=== PATIENT | female | born 1985 | race Caucasian/White ===

== ENCOUNTER 2021-05-25 12:30 | Outpatient (CLI) | payer OTHER, SELFPAY ==
[2021-05-30 21:25] LABS: HPV APTIMA, High Risk Negative (Negative)
== END 2021-05-25 23:59 | disposition home or self-care (01) ==
LOC: LABSPEC 12:32
PROVIDERS: Referring Provider Obstetrics & Gynecology; Visit Provider Obstetrics & Gynecology
DX: Z12.4 Encounter for screening for malignant neoplasm of cervix (principal)
CPT/HCPCS: 87624; 88175; G0145

== ENCOUNTER 2021-05-29 07:42 | Outpatient (CLI) | payer OTHER, SELFPAY ==
[2021-05-29 11:13] LABS: Vitamin D,25 Hydroxy 20.8 ng/mL
[2021-05-29 11:22] LABS: Cholesterol 164 mg/dL (200); Glucose 88 mg/dL (74-106); High Density Lipoprotein 50 mg/dL; Thyroid Stim Hormone (TSH) 6.06 uIU/mL (0.358-3.74); Triglycerides 181 mg/dL; Very Low Density Lipoprotein 36 mg/dL (5-40)
== END 2021-05-29 23:59 | disposition home or self-care (01) ==
LOC: LAB 07:45
PROVIDERS: Visit Provider Obstetrics & Gynecology
DX: Z13.220 Encounter for screening for lipoid disorders (principal); Z13.1 Encounter for screening for diabetes mellitus; Z13.29 Encounter for screening for other suspected endocrine disorder
CPT/HCPCS: 36415; 80061; 82306; 82947; 84443

== ENCOUNTER 2021-06-05 07:33 | Outpatient (CLI) | payer OTHER, SELFPAY ==
[2021-06-05 09:31] LABS: T4 Free Direct 1.02 ng/dL (0.76-1.46); Thyroid Stim Hormone (TSH) 7.24 uIU/mL (0.358-3.74)
== END 2021-06-05 23:59 | disposition home or self-care (01) ==
LOC: LAB 07:34
PROVIDERS: Referring Provider Obstetrics & Gynecology; Visit Provider Obstetrics & Gynecology
DX: E07.9 Disorder of thyroid, unspecified (principal); Z13.29 Encounter for screening for other suspected endocrine disorder
CPT/HCPCS: 36415; 84439; 84443

== ENCOUNTER → 2021-09-29 | Outpatient (CLI) | payer OTHER, SELFPAY ==
[2021-09-29 09:27] LABS: Absolute Lymphocyte Count 2.01 X10^3/uL (0.83-4.51); Absolute Neutrophil Count 3.3 X10^3/uL (2.0-7.7); Basophil# 0.04 X10^3/uL; Basophil% 0.6 % (0-1); Eosinophil# 0.45 X10^3/uL; Eosinophils% 7.2 % (0-5); Hematocrit 38.2 % (37-47); Hemoglobin 12.1 g/dL (12.0-15.0); Lymphocyte # 2.01 X10^3/ul (0.83-4.51); Lymphocyte % 32.4 % (19-41); Mean Corp Hgb Conc 31.7 g/dL (32-36); Mean Corpuscular Hgb 26.1 pg (27.0-32.0); Mean Corpuscular Volume 82.5 fL (81-99); Mean Platelet Vol. 9.7 fl (6.2-12.0); Monocyte# 0.41 X10^3/uL; Monocyte% 6.6 % (0-10); NRBC Flagged by Analyzer 0 % (0-5); Neutrophil # 3.29 X10^3/uL (2.7-7.7); Platelet Count 368 K/mm3 (150-450); RBC Distribution Width CV 15.9 % (11.6-14.6); RBC Distribution Width SD 47.9 fl (35.1-43.9); Red Blood Count 4.63 M/mm3 (4.2-5.4); White Blood Count 6.2 K/mm3 (4.4-11.0)
[2021-09-29 09:46] LABS: BUN 13 mg/dL (7-18); Creatinine, Serum 0.93 mg/dL (0.55-1.02); Glucose 100 mg/dL (74-106)
[2021-09-29 09:47] LABS: ALB/GLOB Ratio 1.1 RATIO (0.9-2.4); AST(SGOT) 16 U/L (15-37); Alanine Aminotransfer ALT/SGPT 24 U/L (13-56); Albumin, Serum 3.8 g/dL (3.2-5.0); Alkaline Phosphatase 58 U/L (45-117); Anion Gap 6 (5-15); BUN/Creat Ratio 13.9 RATIO (10-20); Calcium,Total 8.9 mg/dL (8.5-10.1); Chloride 105 mmol/L (98-107); EST Glomerular Filtration Rate 71 mL/min (>60); Est Glom Filt Rate - Afr Amer 86 mL/min (>60); Globulin 3.5 g/dL (2.2-4.2); Protein, Total 7.3 g/dL (6.4-8.2); Sodium Level 137 mmol/L (136-145)
== END | disposition home or self-care (01) ==
LOC: RAD 08:59
PROVIDERS: PCP Internal Medicine; Referring Provider Internal Medicine; Visit Provider Internal Medicine
DX: E03.9 Hypothyroidism, unspecified (principal)
CPT/HCPCS: 36415; 80053; 84443; 85025

== ENCOUNTER → 2021-12-08 | Outpatient (CLI) | payer OTHER, SELFPAY | END | disposition home or self-care (01) | LOC: LAB 07:09 | PROVIDERS: PCP Internal Medicine; Referring Provider Internal Medicine; Visit Provider Internal Medicine | DX: E03.9 Hypothyroidism, unspecified (principal) | CPT/HCPCS: 36415; 84443 ==

== ENCOUNTER → 2022-01-16 | Outpatient (CLI) | payer OTHER, SELFPAY ==
[2022-01-16 16:17] LABS: Mucous, Urine 0 SEEN /hpf (<or=2+)
[2022-01-16 16:24] LABS: Color, Urine Yellow (Yellow); Glucose, Dipstick Normal (Normal); Ketone-Dipstick Negative (Negative); Leukocyte Esterase-Dipstick 500 /ul (Negative); Nitrite-Dipstick Negative (Negative); Occult Blood-Urine 150 /ul (Negative); Protein-Dipstick 15 mg/dl (Negative); Specific Gravity, Urine 1.015 (1.002-1.030); Urine Bilirubin Dipstick Negative (Negative); Urine Clarity Sl. Cloudy (Clear); Urine Urobilinogen Normal (Normal)
[2022-01-16 16:35] LABS: Bacteria 1+ /hpf (None Seen); Red Blood Cells-Urine 0-5 SEEN /hpf (0-5); Squamous Epithelial Cells - UA 0-5 SEEN /hpf (5-10); White Blood Cells 25-50 SEEN /hpf (0-5)
== END | disposition home or self-care (01) ==
LOC: LABSPEC 16:16
PROVIDERS: PCP Internal Medicine; Visit Provider Nurse Practitioner Family
DX: R39.9 Unspecified symptoms and signs involving the genitourinary system (principal)
CPT/HCPCS: 81001; 87077; 87086; 87088; 87186

== ENCOUNTER → 2022-02-09 | Outpatient (CLI) | payer OTHER, SELFPAY ==
[2022-02-09 08:37] LABS: Thyroid Stim Hormone (TSH) 3.09 uIU/mL (0.358-3.74)
== END | disposition home or self-care (01) ==
LOC: LAB 07:40
PROVIDERS: PCP Internal Medicine; Referring Provider Internal Medicine; Visit Provider Internal Medicine
DX: E03.9 Hypothyroidism, unspecified (principal)
CPT/HCPCS: 36415; 84443

== ENCOUNTER → 2022-10-05 | Outpatient (CLI) | payer OTHER, SELFPAY ==
[2022-10-05 08:10] LABS: Absolute Lymphocyte Count 2.46 X10^3/uL (0.83-4.51); Basophil# 0.06 X10^3/uL; Basophil% 0.8 % (0-1); Eosinophil# 0.34 X10^3/uL; Eosinophils% 4.6 % (0-5); Hematocrit 42.6 % (37-47); Hemoglobin 13.9 g/dL (12.0-15.0); Lymphocyte # 2.46 X10^3/ul (0.83-4.51); Lymphocyte % 33.2 % (19-41); Mean Corp Hgb Conc 32.6 g/dL (32-36); Mean Corpuscular Hgb 28.9 pg (27.0-32.0); Mean Corpuscular Volume 88.6 fL (81-99); Mean Platelet Vol. 10.1 fl (6.2-12.0); Monocyte# 0.55 X10^3/uL; Monocyte% 7.4 % (0-10); NRBC Flagged by Analyzer 0 % (0-5); Neutrophil # 3.97 X10^3/uL (2.7-7.7); Neutrophil % 53.6 % (47-70); Platelet Count 343 K/mm3 (150-450); RBC Distribution Width CV 13.2 % (11.6-14.6); RBC Distribution Width SD 43.5 fl (35.1-43.9); Red Blood Count 4.81 M/mm3 (4.2-5.4); White Blood Count 7.4 K/mm3 (4.4-11.0)
[2022-10-05 08:49] LABS: AST(SGOT) 19 U/L (15-37); Alanine Aminotransfer ALT/SGPT 27 U/L (13-56); Albumin, Serum 3.8 g/dL (3.2-5.0); Alkaline Phosphatase 60 U/L (45-117); Anion Gap 9 (5-15); BUN 15 mg/dL (7-18); BUN/Creat Ratio 15.4 RATIO (10-20); Chloride 105 mmol/L (98-107); Cholesterol 157 mg/dL (200); Creatinine, Serum 0.98 mg/dL (0.55-1.02); EST Glomerular Filtration Rate 67 mL/min (>60); Est Glom Filt Rate - Afr Amer 81 mL/min (>60); Glucose 104 mg/dL (74-106); High Density Lipoprotein 49 mg/dL; Potassium 4.2 mmol/L (3.5-5.1); Protein, Total 7.8 g/dL (6.4-8.2); Sodium Level 139 mmol/L (136-145); Thyroid Stim Hormone (TSH) 4.77 uIU/mL (0.358-3.74); Triglycerides 162 mg/dL; Very Low Density Lipoprotein 32 mg/dL (5-40)
== END | disposition home or self-care (01) ==
LOC: LAB 07:21
PROVIDERS: PCP Internal Medicine; Referring Provider Internal Medicine; Visit Provider Internal Medicine
DX: Z00.00 Encounter for general adult medical examination without abnormal findings (principal); E03.9 Hypothyroidism, unspecified
CPT/HCPCS: 36415; 80053; 80061; 84443; 85025

== ENCOUNTER → 2023-04-26 | Outpatient (CLI) | payer OTHER, SELFPAY ==
--- OUTSIDE RECORDS SUMMARY | 2023-04-26 09:36 | XMS RPT_ITS | CCD ---
Author Name Unknown Address [facility] [address] [place] [address] Organization [facility] Care Team Providers Care Straightener Name Role Phone Unavailable Primary Care Provider Unavailabl e Allergies Allergy Classification Reported Allergen(s) Allergy Type Date of Onset Reaction(s) Facility (3 sources) POISON DEEDEE EXTRACT; Translations: [POISON DEEDEE EXTRACT] Drug Allergy 08-20-2021 Rash [facility] (3 sources) Seasonal allergy; Translations: [SEASONAL ALLERGIES] Allergy to substance 08-20-2021 Intolerance [facility] (3 sources) Cat Dander; Translations: [CAT DANDER] Drug Allergy 08-20-2021 Intolerance [facility] (3 sources) Dog Dander; Translations: [DOG DANDER] Drug Allergy 08-20-2021 Intolerance [facility] Medications Current Medications Medication Drug Class(es) Dates Sig (Normalized) Sig (Original) doxycycline monohydrate 100 mg oral tablet (1 source) Tetracycline-clas s Drug Start: 08-20-2021 End: 08-25-2021 take 1 tablet by mouth twice daily doxycycline monohydrate 100 mg tablet Take 1 tablet by mouth twice daily for 5 days. 10 tablet 0 08/20/2021 08/25/2021 Active Completed/Discontinued Medications Medication Drug Class(es) Dates Sig (Normalized) Sig (Original) levonorgestrel 0.890104 mg/hr intrauterine system (2 sources) Progestin, Progestin-containi ng Intrauterine Device Start: 04-18-2021 levonorgestrel 20.1 mcg/24 hrs (6 yrs) 52 mg IUD Levonorgestrel (Liletta) 20.1 mcg/24 hrs (6 yrs) 52 mg intrauterine device Active 1 DEVICE INTRA-UTER ONCE April 18, 2021 4:39pm as a single dose 0 04/18/2021 Active Problems Problem Classification Problem Date Documented Da te Episodic/Chronic Allergic reactions (1 source) Allergic contact dermatitis caused by plant material; Translations: [Allergic contact dermatitis due to plants, except food] Episodic Superficial injury; contusion (1 source) Insect bite of lower limb; Translations: [Insect bite (nonvenomous), right lower leg, initial encounter] Episodic Results Test Name Value Interpretation Reference Range Facil ity Vital Signs Date Time Vital Sign Value Performing Clinician Kelsey addison 08-18-2022 10:53-0400 Body temperature 97.9 [degF] Anita Landin APRN.LANDSCAPE MANAGER Work Phone: [facility] 08-18-2022 10:53-0400 Body weight 105.23 kg Anita Landin APRN.LANDSCAPE MANAGER Work Phone: [facility] 08-18-2022 10:53-0400 Diastolic blood pressure 68 mm[Hg] Anita Landin APRN.LANDSCAPE MANAGER Work Phone: [facility] 08-18-2022 10:53-0400 Heart rate 110 /min Anita Landin APRN.LANDSCAPE MANAGER Work Phone: [facility] 08-18-2022 10:53-0400 Respiratory rate 16 /min Anita Landin APRN.LANDSCAPE MANAGER Work Phone: [facility] 08-18-2022 10:53-0400 SaO2% (BldA) [Mass fraction] 96 % Anita Landin APRN.LANDSCAPE MANAGER Work Phone: [facility] 08-18-2022 10:53-0400 Systolic blood pressure 120 mm[Hg] Anita Landin APRN.LANDSCAPE MANAGER Work Phone: [facility] 08-20-2021 19:10-0400 Body temperature 98.29 [degF] Anita Landin APRN.LANDSCAPE MANAGER Work Phone: [facility] 08-20-2021 19:10-0400 Body weight 104.69 kg Anita Landin APRN.LANDSCAPE MANAGER Work Phone: [facility] 08-20-2021 19:10-0400 Diastolic blood pressure 82 mm[Hg] Anita Landin APRN.LANDSCAPE MANAGER Work Phone: [facility] 08-20-2021 19:10-0400 Heart rate 96 /min Anita Landin APRN.CNP Work Phone: [facility] 08-20-2021 19:10-0400 Respiratory rate 20 /min Anita Landin APRN.CARLO Work Phone: [facility] 08-20-2021 19:10-0400 SaO2% (BldA) [Mass fraction] 98 % Anita Landin APRN.CARLO Work Phone: [facility] 08-20-2021 19:10-0400 Systolic blood pressure 110 mm[Hg] Anita Landin APRN.CARLO Work Phone: [facility] Encounters Encounter Date Encounter Type Care Provider Facility Start: 08-18-2022 End: 08-18-2022 ambulatory Facility:[facility] Start: 08-18-2022 End: 08-18-2022 Patient encounter procedure Anita Landin APRN.CNP Work Phone: [facility] Plan of Treatment Date Care Activity Detail Author Start: 11-01-2022 Influenza vaccination INFLUENZA (Sea son Ended) [facility] Start: 03-03-2022 DEPRESSION ASSESSMENT DEPRESSION ASS ESSMENT [facility] Start: 11-01-2021 Influenza vaccination INFLUENZA (Sea son Ended) [facility] Start: 07-09-2021 COVID-19 VACCINE (3 - Booster for Pfizer series) COVID-19 VACCINE (3 - Booster for Pfizer series) [facility] Start: 2013 HPV TESTING HPV TESTING [facility] Start: 02-12-2004 PAP TESTING PAP TESTING [facility] Start: 2002 Urine microalbumin profile DTAP,TDAP ,TD (1 - Tdap) [facility] Start: 2001 HEPATITIS C SCREENING HEPATITIS C SC REENING [facility] Start: 2001 HIV SCREENING HIV SCREENING [facility] Start: 1995 Adult depression scr [facility] assessment DEPRESSION SCREENING [facility] Start: 1983 HEPATITIS B (1 of 3 - 3-dose series) HEPATITIS B (1 of 3 - 3-dose series) [facility] Payers Date Payer Category Payer Private Health Insurance [facility] [employer] [id number] 2021-Present [address] [id number] [place] [address] PPO [id number] 2021 Private Health Insurance [facility] [employer] [id number] 2021-Present [address] [id number] [place] [address] PPO [id number] 2021 Private Health Insurance [id number] Social History Date Type Detail Facility Start: 08-20-2021 End: 08-18-2022 Tobacco smoking status NHIS Never smoked tobacco [facility] Start: 08-20-2021 End: 08-18-2022 Tobacco use and exposure Smokeless tobacco non-user [facility] Start: 1985 Sex Assigned At Not on file [facility] Progress note 08-18-2022 Note Date & Type Note Facility 08-18-2022 Note HNO ID: [id number] Author: Anita Landin APRN.LANDSCAPE MANAGER Service: ? Author Type: Nurse Practitioner Type: Progress Notes Filed: 08/18/2022 11:02 AM Note Text: Subjective Came in with complaints of itching rash has 1 spot on the right leg 2 spots on the left leg and some on the right arm. Patient says she was doing yard work and weeding. Patient was not sure if they were fly bites or something else. Patient denies any other symptoms. The history is provided by the patient. No swimming pool maintenance was used. Rash Review of Systems Constitutional: Negative. Skin: Positive for itching and rash. Objective Physical Exam Constitutional: Appearance: Normal appearance. Pulmonary: Effort: Pulmonary effort is normal. Skin: Comments: Does have contact dermatitis in the areas marked above. No signs of infection or drainage noted. Neurological: Mental Status: She is alert. No past medical history on file. No past surgical history on file. ALLERGIES Cat Dander, Dog Dander, Poison Deedee Extract, and Seasonal Allergies MEDICATIONS levothyroxine (SYNTHROID) 50 mcg tablet TAKE 1 TABLET BY MOUTH DAILY EXCEPT ON THE 7TH DAY EACH WEEK TAKE 1.5 TABLETS spironolactone (ALDACTONE) 100 mg tablet levonorgestrel 20.1 mcg/24 hrs (6 yrs) 52 mg IUD Levonorgestrel (Liletta) 20.1 mcg/24 hrs (6 yrs) 52 mg intrauterine device Active 1 DEVICE INTRA-UTER ONCE April 18, 2021 4:39pm as a single dose predniSONE (DELTASONE) 10 mg tablet Take 4 tabs daily for 3 days, then 2 tabs daily for 3 days, then 1 tab daily for 3 days with food. No family history on file. Social History Tobacco Use Smoking status: Never Smokeless tobacco: Never ASSESSMENT/PLAN: 1. Allergic contact dermatitis due to plants, except food - ICD9: 692.6, ICD10: L23.7 - PREDNISONE 10 MG TABLET Patient was educated about proper use of medication and supportive therapies. Patient will follow-up with dermatology if signs and symptoms do not seem to be improving. Or if signs and symptoms worsen. Patient was okay with this care plan. Anita Landin APRN.[facility] History of Present illness Narrative 08-18-2022 Anita Landin APRN.[facility] - 08/18/2022 11:00 AM EDT Note Date & Type Note Facility 08-18-2022 History of Presen t illness Narrative Images from the original note were not included. Subjective Came in with complaints of itching rash has 1 spot on the right leg 2 spots on the left leg and some on the right arm. Patient says she was doing yard work and weeding. Patient was not sure if they were fly bites or something else. Patient denies any other symptoms. The history is provided by the patient. No swimming pool maintenance was used. Rash Review of Systems Constitutional: Negative. Skin: Positive for itching and rash. Objective Physical Exam Constitutional: Appearance: Normal appearance. Pulmonary: Effort: Pulmonary effort is normal. Skin: Comments: Does have contact dermatitis in the areas marked above. No signs of infection or drainage noted. Neurological: Mental Status: She is alert. No past medical history on file. No past surgical history on file. ALLERGIES Cat Dander, Dog Dander, Poison Deedee Extract, and Seasonal Allergies MEDICATIONS levothyroxine (SYNTHROID) 50 mcg tablet TAKE 1 TABLET BY MOUTH DAILY EXCEPT ON THE 7TH DAY EACH WEEK TAKE 1.5 TABLETS spironolactone (ALDACTONE) 100 mg tablet levonorgestrel 20.1 mcg/24 hrs (6 yrs) 52 mg IUD Levonorgestrel (Liletta) 20.1 mcg/24 hrs (6 yrs) 52 mg intrauterine device Active 1 DEVICE INTRA-UTER ONCE April 18, 2021 4:39pm as a single dose predniSONE (DELTASONE) 10 mg tablet Take 4 tabs daily for 3 days, then 2 tabs daily for 3 days, then 1 tab daily for 3 days with food. No family history on file. Social History Tobacco Use Smoking status: Never Smokeless tobacco: Never ASSESSMENT/PLAN: 1. Allergic contact dermatitis due to plants, except food - ICD9: 692.6, ICD10: L23.7 - PREDNISONE 10 MG TABLET Patient was educated about proper use of medication and supportive therapies. Patient will follow-up with dermatology if signs and symptoms do not seem to be improving. Or if signs and symptoms worsen. Patient was okay with this care plan. Anita Lanidn APRN.CARLO documented in this encounter [facility] Progress note 08-20-2021 Note Date & Type Note Facility 08-20-2021 Note HNO ID: [id number] Author: Anita Landin APRN.CNP Service: ? Author Type: Nurse Practitioner Type: Progress Notes Filed: 08/20/2021 7:44 PM Note Text: Subjective Patient came in with complaints of possible infected bug bites on right lower outer ankle. Said there is some redness and swelling now. Denies any pain or difficulty moving joints. denies any other symptoms at this time. The history is provided by the patient. No swimming pool maintenance was used. Review of Systems Constitutional: Negative. Skin: Negative. Objective Physical Exam Constitutional: Appearance: Normal appearance. Pulmonary: Effort: Pulmonary effort is normal. Musculoskeletal: Feet: Feet: Comments: Red area above is where redness is located Purple area is looks to be where the bug bite ocured. Blue area is some mild swelling no redness. Neurological: Mental Status: She is alert. No past medical history on file. No past surgical history on file. ALLERGIES Cat Dander, Dog Dander, Poison Deedee Extract, and Seasonal Allergies MEDICATIONS levothyroxine (SYNTHROID) 50 mcg tablet TAKE 1 TABLET BY MOUTH DAILY EXCEPT ON THE 7TH DAY EACH WEEK TAKE 1.5 TABLETS spironolactone (ALDACTONE) 100 mg tablet levonorgestrel 20.1 mcg/24 hrs (6 yrs) 52 mg IUD Levonorgestrel (Liletta) 20.1 mcg/24 hrs (6 yrs) 52 mg intrauterine device Active 1 DEVICE INTRA-UTER ONCE April 18, 2021 4:39pm as a single dose doxycycline monohydrate 100 mg tablet Take 1 tablet by mouth twice daily for 5 days. No family history on file. Social History Tobacco Use - Smoking status: Never Smoker - Smokeless tobacco: Never Used Substance Use Topics - Alcohol use: Not on file - Drug use: Not on file ASSESSMENT/PLAN: 1. Insect bite of right lower leg, initial encounter - ICD9: 916.4, E906.4, ICD10: S80.861A, W57.XXXA doxycycline bid for 5 days. Instructed to monitor area for worsening symptoms. Patient was okay with this care plan. Anita Landin APRN.CARLO [facility] History of Present illness Narrative 08-20-2021 Anita Landin APRN.[facility] - 08/20/2021 7:20 PM EDT Note Date & Type Note Facility 08-20-2021 History of Presen t illness Narrative Images from the original note were not included. Subjective Patient came in with complaints of possible infected bug bites on right lower outer ankle. Said there is some redness and swelling now. Denies any pain or difficulty moving joints. denies any other symptoms at this time. The history is provided by the patient. No swimming pool maintenance was used. Review of Systems Constitutional: Negative. Skin: Negative. Objective Physical Exam Constitutional: Appearance: Normal appearance. Pulmonary: Effort: Pulmonary effort is normal. Musculoskeletal: Feet: Feet: Comments: Red area above is where redness is located Purple area is looks to be where the bug bite ocured. Blue area is some mild swelling no redness. Neurological: Mental Status: She is alert. No past medical history on file. No past surgical history on file. ALLERGIES Cat Dander, Dog Dander, Poison Deedee Extract, and Seasonal Allergies MEDICATIONS levothyroxine (SYNTHROID) 50 mcg tablet TAKE 1 TABLET BY MOUTH DAILY EXCEPT ON THE 7TH DAY EACH WEEK TAKE 1.5 TABLETS spironolactone (ALDACTONE) 100 mg tablet levonorgestrel 20.1 mcg/24 hrs (6 yrs) 52 mg IUD Levonorgestrel (Liletta) 20.1 mcg/24 hrs (6 yrs) 52 mg intrauterine device Active 1 DEVICE INTRA-UTER ONCE April 18, 2021 4:39pm as a single dose doxycycline monohydrate 100 mg tablet Take 1 tablet by mouth twice daily for 5 days. No family history on file. Social History Tobacco Use Smoking status: Never Smoker Smokeless tobacco: Never Used Substance Use Topics Alcohol use: Not on file Drug use: Not on file ASSESSMENT/PLAN: 1. Insect bite of right lower leg, initial encounter - ICD9: 916.4, E906.4, ICD10: S80.861A, W57.XXXA doxycycline bid for 5 days. Instructed to monitor area for worsening symptoms. Patient was okay with this care plan. Anita Landin APRN.CARLO documented in this encounter [facility] Evaluation note Note Date & Type Note Facility documented in this encounter [facility] Evaluation note Note Date & Type Note Facility documented in this encounter [facility] Summary Purpose Family History No Family History Records Found Advance Directives No Advanced Directives Records Found Additional Source Comments Source Comments (unrecognize d section and content) In the event this informatio n is protected by the Federal Confidentiality of Alcohol and Drug Abuse Patient Records regulations: The Federal rules restrict any use of the information to criminally investigate or prosecute any alcohol or drug abuse patient[facility] event this information is protected by the Federal Confidentiality of Alcohol and Drug Abuse Patient Records regulations: The Federal rules restrict any use of the information to criminally investigate or prosecute any alcohol or drug abuse patient.[facility] Reason for Visit (unrecogniz ed section and content) Specialty Diagnoses / Procedures Referred By Contac t Referred To Contact [facility] Diagnoses possible insect bites on leg since friday Procedures NEW SAME DAY [facility] [address] [place] [address] Referral ID Status Reason Start Date Expiration Date V isits Requested Visits Authorized [id number] Outside PCP 08/20/2021 11/18/2021 1 1 Reason Comments Rash on arms and legs x 2 weeks after fly bites, increased x 1 week ago INFORMATION SOURCE (unrecogn ized section and content) FOR RECORDS PERTAINING TO PATIENTS WHO ARE OR HAVE BEEN ENROLLED IN A CHEMICAL DEPENDENCY/SUBSTANCEABUSE PROGRAM, SOME INFORMATION MAY BE OMITTED. This clinical summary was aggregated from multiple sources. Caution should be exercised in using it in the provision of clinical care. This summary normalizes information from multiple sources, and as a consequence, information in this document may materially change the coding, format and clinical context of patient data. In addition, data may be omitted in some cases. CLINICAL DECISIONS SHOULD BE BASED ON THE PRIMARY CLINICAL RECORDS. [email or web address] provides no warranty or guarantee of the accuracy or completeness of information in this document.
[2023-04-26 10:28] LABS: Thyroid Stim Hormone (TSH) 2.16 uIU/mL (0.358-3.74)
== END | disposition home or self-care (01) ==
LOC: LAB 09:23
PROVIDERS: PCP Internal Medicine; Referring Provider Physician Assistant; Visit Provider Physician Assistant
DX: E03.9 Hypothyroidism, unspecified (principal)
CPT/HCPCS: 36415; 84443

== ENCOUNTER → 2023-07-01 | Outpatient (CLI) | payer OTHER, SELFPAY ==
--- NOTE | 2023-07-01 13:42 | BI_ITS ---
MAMMOGRAPHY - BILATERAL SCREENING REASON FOR EXAM: Female, 38 years old. Routine annual screening examination. PERTINENT HISTORY: Non-contributory. TECHNIQUE: Digital bilateral breast swapnil (3D mammographic acquisition) in the CC and MLO projections. 2-D mediolateral oblique (MLO) and craniocaudad (CC) views of both breasts were obtained. CAD: Full Field Digital Mammography with Computer Added Detection was performed. COMPARISON: None. Baseline examination. FINDINGS: Breast Composition: The breasts are heterogeneously dense, which may obscure small masses. There are no dominant masses or suspicious calcifications. There are small benign-appearing bilateral axillary lymph nodes. No other significant abnormalities are identified. There has been no significant change since the prior study. BI/SCRN MAMM (CAD)W/SWAPNIL BILAT IMPRESSION: Stable bilateral screening mammogram. Yearly follow-up mammogram recommended. (A) ASSESSMENT CATEGORY: BIRADS Category 2: Benign. A letter regarding these results will be sent to the patient by the facility within 30 days. Approximately 10% of breast cancers are not detected by mammography. A normal mammogram should not delay biopsy of a clinically suspicious abnormality. [id number] Electronically Signed: Brandon Hagen MD at 14:35 EDT ,
== END | disposition home or self-care (01) ==
LOC: OPBI 13:42
PROVIDERS: PCP Internal Medicine; Referring Provider Obstetrics & Gynecology; Visit Provider Obstetrics & Gynecology
DX: Z12.31 Encounter for screening mammogram for malignant neoplasm of breast (principal)
CPT/HCPCS: 77063; 77067

== ENCOUNTER → 2023-09-29 | Outpatient (CLI) | payer OTHER, SELFPAY ==
[2023-09-29 16:29] LABS: Absolute Lymphocyte Count 2.49 X10^3/uL (0.83-4.51); Basophil# 0.05 X10^3/uL; Basophil% 0.7 % (0-1); Eosinophil# 0.21 X10^3/uL; Eosinophils% 2.9 % (0-5); Hematocrit 39.4 % (37-47); Hemoglobin 13.1 g/dL (12.0-15.0); Lymphocyte # 2.49 X10^3/ul (0.83-4.51); Lymphocyte % 34.3 % (19-41); Mean Corp Hgb Conc 33.2 g/dL (32-36); Mean Corpuscular Hgb 28.2 pg (27.0-32.0); Mean Corpuscular Volume 84.7 fL (81-99); Monocyte# 0.45 X10^3/uL; Monocyte% 6.2 % (0-10); NRBC Flagged by Analyzer 0 % (0-5); Neutrophil # 4.03 X10^3/uL (2.7-7.7); Neutrophil % 55.6 % (47-70); Platelet Count 325 K/mm3 (150-450); RBC Distribution Width SD 42.7 fl (35.1-43.9); Red Blood Count 4.65 M/mm3 (4.2-5.4); White Blood Count 7.3 K/mm3 (4.4-11.0)
[2023-09-29 16:54] LABS: AST(SGOT) 20 U/L (15-37); Alanine Aminotransfer ALT/SGPT 26 U/L (13-56); Albumin, Serum 3.8 g/dL (3.2-5.0); Alkaline Phosphatase 63 U/L (45-117); Anion Gap 4 (5-15); BUN 13 mg/dL (7-18); BUN/Creat Ratio 12.5 RATIO (10-20); Calcium,Total 9.2 mg/dL (8.5-10.1); Chloride 107 mmol/L (98-107); Cholesterol 149 mg/dL (200); Creatinine, Serum 1.04 mg/dL (0.55-1.02); EST Glomerular Filtration Rate 62 mL/min (>60); Est Glom Filt Rate - Afr Amer 75 mL/min (>60); Glucose 95 mg/dL (74-106); High Density Lipoprotein 52 mg/dL; Potassium 3.6 mmol/L (3.5-5.1); Protein, Total 7.8 g/dL (6.4-8.2); Sodium Level 137 mmol/L (136-145); Thyroid Stim Hormone (TSH) 1.58 uIU/mL (0.358-3.74); Triglycerides 205 mg/dL; Very Low Density Lipoprotein 41 mg/dL (5-40)
== END | disposition home or self-care (01) ==
LOC: BIMLAB 15:44
PROVIDERS: PCP Internal Medicine; Referring Provider Internal Medicine; Visit Provider Internal Medicine
DX: Z00.00 Encounter for general adult medical examination without abnormal findings (principal); E03.9 Hypothyroidism, unspecified
CPT/HCPCS: 36415; 80053; 80061; 84443; 85025

== ENCOUNTER → 2024-07-09 | Outpatient (CLI) | payer OTHER, SELFPAY ==
--- NOTE | 2024-07-09 07:45 | BI_ITS ---
EXAM: SCRN MAMM (CAD)W/SWAPNIL BILAT 07/09/2024 CLINICAL HISTORY: F, Age 39 y/o , SCREEN FOR BREAST CANCER TECHNIQUE: Bilateral screening digital breast tomosynthesis with 2D and 3D images. Computer aided detection. COMPARISON: Prior exam(s) dated 07/01/2023. FINDINGS: TISSUE DENSITY: The breast tissue is heterogenously dense, which may obscure small masses. The mammogram demonstrates that the patient has dense breasts. Supplemental screening with whole breast ultrasound or MRI may be considered for further evaluation. Bilateral Breast Mammographic Findings: No significant masses, calcifications or other abnormalities are identified. BI/SCRN MAMM (CAD)W/SWAPNIL BILAT IMPRESSION: Right Breast: BIRADS 1 NEGATIVE. Left Breast: BIRADS 1 NEGATIVE. OVERALL FINAL ASSESSMENT: BIRADS 1 NEGATIVE. RECOMMENDATION: Routine annual follow-up in 1 Year A letter with findings and recommendations will be mailed to the patient. Reading Location: [id number]
== END | disposition home or self-care (01) ==
PROVIDERS: PCP Internal Medicine; Referring Provider Obstetrics & Gynecology; Visit Provider Obstetrics & Gynecology
DX: Z12.31 Encounter for screening mammogram for malignant neoplasm of breast (principal)
CPT/HCPCS: 77063; 77067

== ENCOUNTER → 2024-10-12 | Outpatient (CLI) | payer OTHER, SELFPAY ==
--- OUTSIDE RECORDS SUMMARY | 2024-10-12 06:43 | XMS RPT_ITS | CCD ---
Author Organization [facility] CliniSynv Care Team Providers Care [employer] Jointer Name Role Phone Care Physician, No Primary Primary Care Provider Unavailable Care Physician, No Primary Referring Provider Un available Dr. Jeane Vazquez Attending Provider 1(330 ) Unavailable Primary Care Provider Unavailabl e Care Physician, No Primary Primary Care Provider Unavailable Care Physician, No Primary Referring Provider Un available Dr. Adelina Graves Attending Provider 1(330)2 Dr. Adelina Graves Primary Care Provider 1(33 0) Dr. Adelina Graves Referring Provider 1(330)2 Faraz LINE WALKER, JOSEPH-C Delroy Attending Provider 1(330) Unavailable Primary Care Provider Dr. Adelina Cassidy Primary Care Provider 1(33 0) Dr. Adelina Graves Referring Provider 1(330)2 Dr. Jeane Vazquez Attending Provider 1(330 ) Care Physician, No Primary Referring Provider Un available Dr. Adelina Graves Attending Provider 1(330)2 Dr. Adelina Graves Primary Care Provider 1(33 0) Dr. Adelina Graves Referring Provider 1(330)2 Dr. Jeane Vazquez Attending Provider 1(330 ) Dr. Adelina Graves MD Primary Care Provider Dr. Adelina Graves MD Attending Provider 1(33 0) Dr. Adelina Graves MD Referring Provider 1(33 0) Dr. Jeane Vazquez MD Attending Provider Taylor MENDOZA, Dr. Ching Referring Provider 1( [phone] Oleghe, Efewongbe Primary Care Unavailable Oleghe, Efewongbe Referring Unavailable Oleghe, Efewongbe Attending Unavailable Oleghe, Efewongbe Referring Unavailable Oleghe, Efewongbe Primary Care Unavailable Oleghe, Efewongbe Attending Unavailable Oleghe, Efewongbe Primary Care Unavailable Jeane Vazquez Referring Unavailable Jeane Vazquez Attending Unavailable Oleghe, Efewongbe Referring Unavailable Oleghe, Efewongbe Attending Unavailable Oleghe, Efewongbe Primary Care Unavailable Oleghe, Efewongbe Referring Unavailable Oleghe, Efewongbe Primary Care Unavailable Jeane Vazquez Attending Unavailable Oleghe, Efewongbe Referring Unavailable Oleghe, Efewongbe Attending Unavailable Oleghe, Efewongbe Primary Care Unavailable Oleghe, Efewongbe Referring Unavailable Oleghe, Efewongbe Attending Unavailable Oleghe, Efewongbe Primary Care Unavailable Oleghe, Efewongbe Referring Unavailable Oleghe, Efewongbe Attending Unavailable Oleghe, Efewongbe Primary Care Unavailable Allergies Allergy Classification Reported Allergen(s) Allergy Type Date of Onset Reaction(s) Facility (7 sources) POISON PELON EXTRACT; Translations: [POISON PELON EXTRACT] Drug Allergy 2 Rash [facility] (3 sources) Seasonal allergy; Translations: [SEASONAL ALLERGIES] Allergy to substance 2 Intolerance [facility] (8 sources) Cat Dander; Translations: [CAT DANDER] Drug Allergy 2 Intolerance [facility] (7 sources) Dog Dander; Translations: [DOG DANDER] Drug Allergy 2 Intolerance [facility] (9 sources) claudia allergenic extract Drug Allergy 2 Rash [facility] (5 sources) Environmental Allergies: Uncoded; Translations: [Environmental Allergies: Uncoded] Allergy to substance 4 Itching [facility] (5 sources) poison oak extract; Translations: [poison oak extract] Allergy to substance 4 Itching [facility] (5 sources) Seasonal Allergies: Uncoded; Translations: [Seasonal Allergies: Uncoded] Allergy to substance 4 Itching [facility] (1 source) claudia allergenic extract Drug Allergy 5 [facility] Repository (1 source) poison pelon extract Drug allergy (disorder) 5 [facility] Repository (1 source) dog dander Drug allergy (disorder) 5 [facility] Repository Medications Current Medications Medication Drug Class(es) Dates Sig (Normalized) Sig (Original) cetirizine hydrochloride 10 mg oral capsule (9 sources) Histamine-1 Receptor Antagonist Start: 09-19-2021 take 1 capsule by mouth once daily as needed Cetirizine (Zyrtec) 10 mg capsule Active 10 mg PO DAILY as needed September 19, 2021 12:00am cholecalciferol 0.025 mg oral capsule (9 sources) Vitamin D Start: 09-19-2021 take 1 capsule by mouth once daily Cholecalciferol (Vitamin D3) 25 mcg (1,000 unit) capsule Active 25 ug PO DAILY September 19, 2021 12:00am doxycycline monohydrate 100 mg oral tablet (1 source) Tetracycline-class Drug Start: 08-20-2021 End: 08-25-2021 take 1 tablet by mouth twice daily doxycycline monohydrate 100 mg tablet Take 1 tablet by mouth twice daily for 5 days. 10 tablet 0 08/20/2021 08/25/2021 Active Comment on above: Take 1 tablet by kennedy twice daily for 5 days. fluticasone propionate 0.05 mg/actuat metered dose nasal spray (12 sources) Corticosteroid Start: 09-19-2021 End: 03-11-2024 take 50 ug nasal route once daily as needed Fluticasone Propionate (Flonase Allergy Relief) 50 mcg/actuation spray,suspension Active 1 NMA INTRANASAL DAILY as needed March 11, 2024 1:56pm administer into each nostril Start: 09-19-2021 take 1 spray(s) nasa l route once daily Fluticasone Propionate (Flonase Allergy Relief) 50 mcg/actuation spray,suspension Active 1 SPRAY INTRANASAL DAILY September 19, 2021 12:00am administer into each nostril levonorgestrel 0.860983 mg/hr intrauterine system (14 sources) Progestin, Progestin-containing Intrauterine Device Start: 04-18-2021 Levonorgestrel (Liletta) 20.1 mcg/24 hrs (6 yrs) 52 mg intrauterine device Active 1 NMA INTRA-UTER ONCE April 18, 2021 1:00am as a single dose Start: 04-18-2021 Levonorgestrel (Liletta) 20.1 mcg/24 hrs (6 yrs) 52 mg intrauterine device Active 1 DEVICE INTRA-UTER ONCE April 18, 2021 1:00am as a single dose Comment on above: Levonorgestrel (Jinny tta) 20.1 mcg/24 hrs (6 yrs) 52 mg intrauterine device Active 1 DEVICE INTRA-UTER ONCE April 18, 2021 4:39pm as a single dose levothyroxine sodium 0.088 mg oral tablet (20 sources) l-Thyroxine Start: 12-11-19 End: 09-17-19 take 1 tablet by mouth once daily Levothyroxine 88 mcg tablet Active 88 ug PO DAILY 90 September 16, 2024 5:16pm Start: 10-02-2021 End: 12-10-2021 take 1 tablet by mouth once daily Levothyroxine 75 mcg tablet Discontinued 75 ug PO DAILY 60 0 October 02, 2021 12:00am December 10, 2021 4:05pm Start: 09-19-2021 End: 10-02-2021 take 1 capsule by mouth once daily Levothyroxine 50 mcg capsule Discontinued 50 ug PO DAILY September 19, 2021 12:00am October 02, 2021 9:31am Start: 06-01-2021 End: 09-19-2021 take 2 capsules by mouth once daily, then take 3 capsules by mouth once daily Levothyroxine 25 mcg capsule Discontinued 50 ug PO DAILY 01 03June 01, 2021 4:42pm September 19, 2021 2:48pm 50mcg 6 days a week, 75 mcg 1 day a week Start: 06-01-2021 End: 09-19-2021 take 50 ug by mouth once daily, then take 75 ug by mouth once daily Levothyroxine Discontinued 50 MCG PO DAILY June 01, 2021 4:42pm September 19, 2021 2:48pm 50mcg 6 days a week, 75 mcg 1 day a week Start: 05-25-2021 End: 06-01-2021 take 1 capsule by mouth once daily Levothyroxine 25 mcg capsule Discontinued 25 ug PO DAILY 30 May 25, 2021 10:52am June 01, 2021 4:43pm Start: 04-12-2021 levothyroxine (SYNTHROID) 50 mcg tablet TAKE 1 TABLET BY MOUTH DAILY EXCEPT ON THE 7TH DAY EACH WEEK TAKE 1.5 TABLETS 0 04/12/2021 Active Comment on above: TAKE 1 TABLET BY KENNEDY TH DAILY EXCEPT ON THE 7TH DAY EACH WEEK TAKE 1.5 TABLETS 24 hr venlafaxine 75 mg extended release oral capsule (11 sources) Serotonin and Norepinephrine Reuptake Inhibitor Start: 06-10-19 End: 07-17-19 take 1 capsule by mouth once daily Venlafaxine 75 mg capsule,extended release 24hr Active 75 mg PO daily 90 July 16, 2024 1:53pm Start: 03-11-2024 End: 06-09-2024 take 1 capsule by mouth once daily Venlafaxine 37.5 mg capsule,extended release 24hr Discontinued 37.5 mg PO daily 30 May 14, 2024 1:48pm June 09, 2024 5:19pm Completed/Discontinued Medications Medication Drug Class(es) Dates Sig (Normalized) Sig (Original) Balanced barrier Vitamin (3 sources) Start: 09-29-2023 End: 12-31-2023 Balanced barrier Vitamin Discontinued OTHER September 29, 2023 12:00am December 31, 2023 2:54pm 24 hr buPROPion hydrochloride 150 mg extended release oral tablet (10 sources) Aminoketone Start: 12-31-2023 End: 03-11-2024 Bupropion Hcl 150 mg tablet extended release 24 hr Discontinued 300 mg PO EVERY MORNING 60 December 31, 2023 3:05pm March 11, 2024 1:55pm Start: 09-29-2023 End: 12-31-2023 take 1 tablet by mouth once daily in the morning Bupropion Hcl 300 mg tablet extended release 24 hr Discontinued 300 mg PO EVERY MORNING 90 September 29, 2023 3:39pm December 31, 2023 3:05pm Start: 06-19-2023 End: 09-29-2023 take 1 tablet by mouth once daily in the morning Bupropion Hcl (Wellbutrin Xl) 150 mg tablet extended release 24 hr Discontinued 150 mg PO EVERY MORNING 30 June 19, 2023 12:00am September 29, 2023 3:40pm cephalexin 500 mg oral capsule (7 sources) Cephalosporin Antibacterial Start: 01-15-2022 End: 06-13-2022 take 1 capsule by mouth every eight hours Cephalexin 500 mg capsule Discontinued 500 mg PO Q8H 15 0 January 15, 2022 1:00am June 13, 2022 3:17pm predniSONE 10 mg oral tablet (1 source) Start: 08-18-2022 predniSONE (DELTASONE) 10 mg tablet Indications: Allergic contact dermatitis due to plants, except food Take 4 tabs daily for 3 days, then 2 tabs daily for 3 days, then 1 tab daily for 3 days with food. 21 tablet 0 08/18/2022 Active Comment on above: Take 4 tabs daily fo r 3 days, then 2 tabs daily for 3 days, then 1 tab daily for 3 days with food. spironolactone 100 mg oral tablet (20 sources) Aldosterone Antagonist Start: 05-25-2021 End: 07-16-2024 take 1 tablet by mouth once daily Spironolactone 100 mg tablet Discontinued 100 mg PO DAILY 90 4 March 29, 2024 7:59am July 16, 2024 1:54pm Problems Problem Classification Problem Date Documented Date Episodic/Chronic Allergic reactions (1 source) Allergic contact dermatitis caused by plant material; Translations: [Allergic contact dermatitis due to plants, except food] Episodic Anxiety disorders (6 sources) Mixed anxiety and depressive disorder; Translations: [Anxiety disorder, unspecified] 03-11-2024 Chronic Contraceptive and procreative management (16 sources) Patient encounter status; Translations: [Encounter for contraceptive management, unspecified] Episodic Comment on above: IUD 12/23/19 Mood disorders (14 sources) Dysthymia; Translations: [Dysthymic disorder] Onset: 07-16-2024 06-19-2023 Chronic Comment on above: effexor Other hereditary and degenerative nervous system conditions (3 sources) Blepharospasm; Translations: [Blepharospasm] 03-11-2024 Chronic Other non-traumatic joint disorders (3 sources) Pain in left knee; Translations: [Left knee pain] 09-29-2023 Episodic Other nutritional; endocrine; and metabolic disorders (9 sources) Body mass index 30+ - obesity; Translations: [Obesity, unspecified] 09-19-2021 Chronic Other nutritional; endocrine; and metabolic disorders (3 sources) Obesity, unspecified; Translations: [Obesity, unspecified] Chronic Other screening for suspected conditions (not mental disorders or infectious disease) (1 source) Encounter for screening mammogram for malignant neoplasm of breast; Translations: [Encounter for screening mammogram for malignant neoplasm of breast] Onset: 07-15-2024 Episodic Other skin disorders (12 sources) Acne; Translations: [Acne, unspecified] 09-19-2021 Episodic Other skin disorders (5 sources) Acne, unspecified; Translations: [Other acne] Episodic Other upper respiratory disease (9 sources) Seasonal allergy; Translations: [Other seasonal allergic rhinitis] 09-19-2021 Chronic Superficial injury; contusion (1 source) Insect bite of lower limb; Translations: [Insect bite (nonvenomous), right lower leg, initial encounter] Episodic Thyroid disorders (17 sources) Hypothyroidism; Translations: [Hypothyroidism, unspecified] Onset: 09-16-2024 Chronic Urinary tract infections (1 source) Acute cystitis without hematuria; Translations: [Acute cystitis] Episodic Results Test Name Value Interpretation Reference Range Facility Internal Medicine Office Vis marc 09-16-2024 Internal Medicine Office Visit [facility] [address] [place] [address] OFFICE VISIT Date of Service: 09/16/24 MR#: [id number] Acct: [id number] Name: MARLON PERERA Rep #: [id number] : 1985 Provider: Dr. Adelina brannon MD Age/Sex: 39/F Location[place] [facility] Status: Signed Intake Vital Signs 06/09/24 17:01 07/16/24 13:26 09/16/24 17:01 Height 5 ft 6 in 5 ft 6 in 5 ft 6 in Weight: 227 lb 6 oz BMI 36.6 BP 114/68 Blood Pressure Location Lt brachial Position Sitting Respiration 16 Pulse 90 Pulse Source Monitor Temp 97.6 F L Temp Source Temporal Pulse Oximetry (%) 97 Oxygen Delivery Method room air Intake Visit Reasons: YEARLY/3 M FU Chief Complaint: Follow-up Bread Racker Required: No Accompanied by: Self Is patient in pain?: No Allergies claudia Allergy (Intermediate, Verified 09/16/24 16:58) Rash cat dander Allergy (Verified 09/16/24 16:58) Itching dog dander Allergy (Verified 09/16/24 16:58) Itching Environmental Allergies: Uncoded Allergy (Verified 09/16/24 16:58) Itching poison pelon extract Allergy (Verified 09/16/24 16:58) Itching poison oak extract Allergy (Verified 09/16/24 16:58) Itching Seasonal Allergies: Uncoded Allergy (Verified 09/16/24 16:58) Itching Medications ???Medication ???Instructions ???Recorded ???Confirmed ???Type levonorgestrel 20.4 mcg/24 hr (up 1 device intrauterine ONCE 09/16/24 History to 8 yrs) 52 mg intrauterine device (Liletta) cetirizine 10 mg capsule (Zyrtec) 10 mg PO DAILY PRN 09/19/2109/16 History cholecalciferol (vitamin D3) 25 25 mcg PO DAILY 09/19/21 09/16/24 History mcg (1,000 unit) capsule fluticasone propionate 50 1 spray intranasal DAILY PRN 03/1109/16/24 History mcg/actuation nasal spray,suspension (Flonase Allergy Relief) spironolactone 100 mg tablet 100 mg PO DAILY #90 tabs 07/16/24 09/16/24 Rx venlafaxine 75 mg capsule,extended 75 mg PO QDAY #90 caps 07/16/24 09/16/24 Rx release 24 hr levothyroxine 88 mcg tablet 88 mcg PO DAILY #90 tabs 09/16/24 09/16/24 Rx PFSH Medical History Spasm of eyelids Anxiety and depression Health care maintenance Left knee pain Depression Preventative health care Obesity (BMI 30-39.9) Hypothyroidism Seasonal allergies Thyroid disorder Contraceptive management Surgical History History of tonsillectomy and adenoidectomy Colton teeth removed Family History Mother Diabetes Grandmother Colon cancer Hypertension Hyperlipemia Father Asthma Social History adopted: No household members: spouse and children number of children: 1 current occupational status: employed current occupation: [employer] pets and animals: Yes pets and animals: cat(s) and dog(s) sexually active: Yes Smoking Status: Former smoker quit date: 03/03/08 Tobacco: How many years used: 5 alcohol intake: current alcohol intake frequency: a few times a week substance use type: does not use and marijuana diet: lactose free caffeine: Yes (2) Type: coffee frequency: other details: active in yard seatbelt use: always do you feel safe at home: Yes HPI HPI Chief Complaint: Follow-up Details: MARLON PERERA, is a 39 F who presents to the office today for her yearly visit. No acute concerns at this time. No significant changes in personal or family history since last visit. Stays active but does not routinely exercise however plans to change that. Follows up closely with CLERICAL METHODS ANALYST and had a Pap smear about a year ago. Recent mammogram with no concerns. Has not had a skin cancer screening by dermatology but follows up with dermatology. No tobacco or alcohol abuse. No known personal or family history of colon cancer. ROS Const Constitutional: No body ache, excessive sweating, fatigue, fever(s), frequent falls, headache(s), snoring, weakness, weight change, sleep problems or change in appetite Eyes Eyes: No blurry vision, change in vision, vision loss, dry eyes, eye pain or Light sensitivity ENT ENT: No abnormal hearing, ear or mastoid pain, tinnitus, dizziness/vertigo, nasal congestion, headache(s), neck pain or sore throat Resp Respiratory: No cough, excessive phlegm production, hemoptysis, shortness of breath, snoring or wheezing Cardio Cardiology: No chest pain at rest, chest pain with exertion, excessive sweating, shortness of breath, dyspnea on exertion, lightheadedness, orthopnea or palpitations Gastro GI: No abdominal pain, change in bowel habits, constipation, cramping, diarrhea, nausea/dyspepsia or vomiting Genitourinary-Female: No burning urinatio (more content not included)... Normal [facility] Extractor Filler Office Visit Reporton 07-16-2024 Extractor Filler Office Visit Report [facility] [address] [place] [address], [address] [place] [address] OFFICE VISIT Date of Service: 07/16/24 MR#: [id number] Acct: [id number] Name: MARLON PERERA Rep #: [id number] : 1985 Provider: Dr. Jeane aguirre MD Age/Sex: 39/F Location[place] [facility] Status: Signed Intake Vital Signs 03/11/24 12:57 06/09/24 17:01 07/16/24 13:26 Height 5 ft 6 in 5 ft 6 in 5 ft 6 in Weight: 235 lb 224 lb 6 oz 219 lb 4 oz BMI 37.9 36.2 35.4 BP 128/72 H 120/92 H 122/80 H Blood Pressure Location Lt brachial Rt brachial Position Sitting Sitting Respiration 17 16 Pulse 89 78 Pulse Source Monitor Monitor Temp 98.1 F 97.8 F Pulse Oximetry (%) 97 96 Oxygen Delivery Method room air room air Intake Visit Reasons: 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) Bread Racker Required: No Is patient in pain?: No Allergies claudia Allergy (Intermediate, Verified 07/16/24 13:27) Rash cat dander Allergy (Verified 07/16/24 13:27) Itching dog dander Allergy (Verified 07/16/24 13:27) Itching Environmental Allergies: Uncoded Allergy (Verified 07/16/24 13:27) Itching poison pelon extract Allergy (Verified 07/16/24 13:27) Itching poison oak extract Allergy (Verified 07/16/24 13:27) Itching Seasonal Allergies: Uncoded Allergy (Verified 07/16/24 13:27) Itching Medications ???Medication ???Instructions ???Recorded ???Confirmed ???Type levonorgestrel 20.4 mcg/24 hr (up 1 device intrauterine ONCE 07/16/24 History to 8 yrs) 52 mg intrauterine device (Liletta) cetirizine 10 mg capsule (Zyrtec) 10 mg PO DAILY PRN 09/19/2107/16 History cholecalciferol (vitamin D3) 25 25 mcg PO DAILY 09/19/21 07/16/24 History mcg (1,000 unit) capsule fluticasone propionate 50 1 spray intranasal DAILY PRN 03/1107/16/24 History mcg/actuation nasal spray,suspension (Flonase Allergy Relief) levothyroxine 88 mcg tablet 88 mcg PO DAILY #90 tabs 03/22/24 07/16/24 Rx spironolactone 100 mg tablet 100 mg PO DAILY #90 tabs 07/16/24 07/16/24 Rx venlafaxine 75 mg capsule,extended 75 mg PO QDAY #90 caps 07/16/24 07/16/24 Rx release 24 hr Is last menstrual period known: No Post menopausal: No Patient : No : No PFSH Medical History Spasm of eyelids Anxiety and depression Health care maintenance Left knee pain Depression Preventative health care Obesity (BMI 30-39.9) Hypothyroidism Seasonal allergies Thyroid disorder Contraceptive management Surgical History History of tonsillectomy and adenoidectomy Colton teeth removed Family History Mother Diabetes Grandmother Colon cancer Hypertension Hyperlipemia Father Asthma Social History adopted: No household members: spouse and children number of children: 1 current occupational status: employed current occupation: [employer] pets and animals: Yes pets and animals: cat(s) and dog(s) sexually active: Yes Smoking Status: Former smoker quit date: 03/03/08 Tobacco: How many years used: 5 alcohol intake: current alcohol intake frequency: a few times a week substance use type: does not use and marijuana diet: lactose free caffeine: Yes (2) Type: coffee frequency: other details: active in yard seatbelt use: always do you feel safe at home: Yes History 1 Elective abortions Hx Para 1 Spontaneous abortions Hx # Term Pregnancies 1 Ectopic pregnancies Hx # Pregnancies Multiple births # of living children 1 Past Pregnancies Del. Date Name GA/Weeks Outcome Route Bth Weight Infant Gen Labor Lgth Anesthesia Del Locatn Provider FOB 05/12/09 [place] 40 live - full term 12 hours epidural Delivery Date: 05/12/09 Last Updated by: Lydia Mcduffie IOL HPI Encounter for routine gynecological examination Details: MARLON PERERA is a 39 year old who presents for annual exam. Last PAP: 05/25/2021 - normal History of abnormal PAP: Last mammogram: 07/09/24 - normal History of abnormal mammogram: Colon cancer screening: not due Other preventative health care screenings: PCP [facility] Female Reproductive History Questions: metorrhagia: No, sexually active: Yes, dyspareunia: No and PCB: No Menopausal Symptoms: No hot flashes, No night sweats, No weight change, No mood changes, No difficulty concentrating, No sleep problems and No change in libido ROS Const Constitutional: Reports as per HPI; Denies fatigue, increased appetite, poor appetite, night sweats, weight gain or weight loss Cardio Card: Denies chest pain Resp Resp: Denies cough or dyspnea GI GI: Repo (more content not included)... Normal [facility] Breast imaging reportOrdered By: Ange Guidry on 07-09-2024 Study report [facility] Imaging Services [address] [place] [address] SCRN MAMM (CAD)W/SWAPNIL BILAT MR#: [id number] Acct: [id number] Name: MARLON PERERA Rep #: [id number] : 1985 F 39 From: Dyana Guidry MD PCP: Dr. Adelina Graves MD Status: R EG CLI Study:SCRN MAMM (CAD)W/SWAPNIL BILAT Date of Exa m: 07/09/24 Exam# [id number] Ordering Dr: Jeane Julio MD EXAM: SCRN MAMM (CAD)W/SWAPNIL BILAT 07/09/2024 CLINICAL HISTORY: F, Age 39 y/o , SCREEN FOR BREAST CANCER TECHNIQUE: Bilateral screening digital breast tomosynthesis with 2D and 3D images. Computeraided detection. COMPARISON: Prior exam(s) dated 07/01/2023. FINDINGS: TISSUE DENSITY: The breast tissue is heterogenously dense, which may obscure small masses. The mammogram demonstrates that the patient has dense breasts. Supplemental screening with whole breast ultrasound or MRI may be considered for further evaluation. Bilateral Breast Mammographic Findings: No significant masses, calcifications or other abnormalities are identified. BI/SCRN MAMM (CAD)W/SWAPNIL BILAT IMPRESSION: Right Breast: BIRADS 1 NEGATIVE. Left Breast: BIRADS 1 NEGATIVE. OVERALL FINAL ASSESSMENT: BIRADS 1 NEGATIVE. RECOMMENDATION: Routine annual follow-up in 1 Year A letter with findings and recommendations will be mailed to the patient. Reading Location: [facility] CC: Dr. Adelina Graves MD; Dr. Jeane Vazquez MD ~ Superintendent Plant Protection: Signed [facility] SCRN MAMM (CAD)W/SWAPNIL BILATo n 07-09-2024 SCRN MAMM (CAD)W/SWAPNIL BILAT [facility] Imaging Services [address] [place] [address] [phone] SCRN MAMM (CAD)W/SWAPNIL BILAT MR#: [id number] Acct: [id number] Name: MARLON PERERA Rep #: [id number] : 1985 F 39 From: Ange Guidry MD PCP: Dr. Adelina Graves MD Status: REG CLI Study: SCRN MAMM (CAD)W/SWAPNIL BILAT Date of Exam: 11/25 Exam# [id number] Ordering Dr: Jeane Vazquez EXAM: SCRN MAMM (CAD)W/SWAPNIL BILAT 07/09/2024 CLINICAL HISTORY: F, Age 39 y/o , SCREEN FOR BREAST CANCER TECHNIQUE: Bilateral screening digital breast tomosynthesis with 2D and 3D images. Computer aided detection. COMPARISON: Prior exam(s) dated 07/01/2023. FINDINGS: TISSUE DENSITY: The breast tissue is heterogenously dense, which may obscure small masses. The mammogram demonstrates that the patient has dense breasts. Supplemental screening with whole breast ultrasound or MRI may be considered for further evaluation. Bilateral Breast Mammographic Findings: No significant masses, calcifications or other abnormalities are identified. BI/SCRN MAMM (CAD)W/SWAPNIL BILAT IMPRESSION: Right Breast: BIRADS 1 NEGATIVE. Left Breast: BIRADS 1 NEGATIVE. OVERALL FINAL ASSESSMENT: BIRADS 1 NEGATIVE. RECOMMENDATION: Routine annual follow-up in 1 Year A letter with findings and recommendations will be mailed to the patient. Reading Location: [id number] CC: Dr. Adelina Graves MD; Dr. Jeane Vazquez MD Superintendent Plant Protection: Signed Normal [facility] Internal Medicine Office Vis itoemory 06-09-2024 Internal Medicine Office Visit [facility] [address] [place] [address] OFFICE VISIT Date of Service: 06/09/24 MR#: [id number] Acct: [id number] Name: MARLON PERERA Rep #: [id number] : 1985 Provider: Dr. Adelina brannon MD Age/Sex: 39/F Location[place] [facility] Status: Signed Intake Vital Signs 03/11/24 12:57 06/09/24 17:01 Height 5 ft 6 in 5 ft 6 in Weight: 224 lb 6 oz BMI 36.2 BP 120/92 H Blood Pressure Location Rt brachial Position Sitting Respiration 16 Pulse 78 Pulse Source Monitor Temp 97.8 F Temp Source Temporal Pulse Oximetry (%) 96 Oxygen Delivery Method room air Intake Visit Reasons: 3 M FU Chief Complaint: Follow-up chronic conditions Bread Racker Required: No Accompanied by: Self Is patient in pain?: No Allergies claudia Allergy (Intermediate, Verified 06/09/24 16:59) Rash cat dander Allergy (Verified 06/09/24 16:59) Itching dog dander Allergy (Verified 06/09/24 16:59) Itching Environmental Allergies: Uncoded Allergy (Verified 06/09/24 16:59) Itching poison pelon extract Allergy (Verified 06/09/24 16:59) Itching poison oak extract Allergy (Verified 06/09/24 16:59) Itching Seasonal Allergies: Uncoded Allergy (Verified 06/09/24 16:59) Itching Medications ???Medication ???Instructions ???Recorded ???Confirmed ???Type levonorgestrel 20.4 mcg/24 hr (up 1 device intrauterine ONCE 06/09/24 History to 8 yrs) 52 mg intrauterine device (Liletta) cetirizine 10 mg capsule (Zyrtec) 10 mg PO DAILY PRN 09/19/2106/09 History cholecalciferol (vitamin D3) 25 25 mcg PO DAILY 09/19/21 06/09/24 History mcg (1,000 unit) capsule fluticasone propionate 50 1 spray intranasal DAILY PRN 03/1106/09/24 History mcg/actuation nasal spray,suspension (Flonase Allergy Relief) levothyroxine 88 mcg tablet 88 mcg PO DAILY #90 tabs 03/22/24 06/09/24 Rx spironolactone 100 mg tablet 100 mg PO DAILY #90 tabs 03/29/24 06/09/24 Rx venlafaxine 75 mg capsule,extended 75 mg PO QDAY #90 caps 06/09/24 06/09/24 Rx release 24 hr Have you fallen in the past year?: No Nurse's Note: needs refills on meds PFSH Medical History Spasm of eyelids Anxiety and depression Health care maintenance Left knee pain Depression Preventative health care Obesity (BMI 30-39.9) Hypothyroidism Seasonal allergies Thyroid disorder Contraceptive management Surgical History History of tonsillectomy and adenoidectomy Col[place] teeth removed Family History Mother Diabetes Grandmother Colon cancer Hypertension Hyperlipemia Father Asthma Social History adopted: No household members: spouse and children number of children: 1 current occupational status: employed current occupation: [employer] pets and animals: Yes pets and animals: cat(s) and dog(s) sexually active: Yes Smoking Status: Former smoker quit date: 03/03/08 Tobacco: How many years used: 5 alcohol intake: current alcohol intake frequency: a few times a week substance use type: does not use and marijuana diet: lactose free caffeine: Yes (2) Type: coffee frequency: other details: active in yard seatbelt use: always do you feel safe at home: Yes HPI HPI Chief Complaint: Follow-up chronic conditions Details: MARLON PERERA, is a 39 F who presents to the office today for follow-up. No acute concerns at this time. At her last visit, started on venlafaxine due to dysthymia/anxiety/dep ression. She states that she has found it helpful. No concerning side effects. Believes that there is room for more. Other chronic medical conditions are stable. ROS Const Constitutional: No body ache, excessive sweating, fatigue, fever(s), frequent falls, headache(s), snoring, weakness, weight change, sleep problems or change in appetite Eyes Eyes: No blurry vision, change in vision, floaters, visual disturbances, eye pain or Light sensitivity ENT ENT: No abnormal hearing, ear or mastoid pain, tinnitus, balance problems, nosebleed/epistaxis, nasal congestion, headache(s), neck pain or sore throat Resp Respiratory: No cough, excessive phlegm production, pain on inspiration, shortness of breath, snoring or wheezing Cardio Cardiology: No chest pain at rest, chest pain with exertion, excessive sweating, shortness of breath, dyspnea on exertion, lightheadedness, orthopnea or palpitations Gastro GI: No abdominal pain, change in bowel habits, constipation, cramping, diarrhea, nausea/dyspepsia or vomiting Genitourinary-Female: No burning urination, painful urination, urinary incontinence, urinary frequency, bl (more content not included)... Normal [facility] Internal Medicine Office Vis nory 03-11-2024 Internal Medicine Office Visit [facility] [place] [address] [place] [address] OFFICE VISIT Date of Service: 03/11/24 MR#: [id number] Acct: [id number] Name: MARLON PERERA Rep #: [id number] : 1985 Provider: Dr. Adelina brannon MD Age/Sex: 39/F Location: [facility] Status: Signed Intake Vital Signs 12/31/23 14:55 03/11/24 12:57 Height 5 ft 6 in 5 ft 6 in Weight: 235 lb BMI 37.9 BP 128/72 H Blood Pressure Location Lt brachial Position Sitting Respiration 17 Pulse 89 Pulse Source Monitor Temp 98.1 F Temp Source Temporal Pulse Oximetry (%) 97 Oxygen Delivery Method room air Intake Visit Reasons: 2 M FU Chief Complaint: 2 M FU Is patient in pain?: No Allergies claudia Allergy (Intermediate, Verified 03/11/24 12:55) Rash cat dander Allergy (Verified 03/11/24 12:55) Itching dog dander Allergy (Verified 03/11/24 12:55) Itching Environmental Allergies: Uncoded Allergy (Verified 03/11/24 12:55) Itching poison pelon extract Allergy (Verified 03/11/24 12:55) Itching poison oak extract Allergy (Verified 03/11/24 12:55) Itching Seasonal Allergies: Uncoded Allergy (Verified 03/11/24 12:55) Itching Medications ???Medication ???Instructions ???Recorded ???Confirmed ???Type levonorgestrel 20.4 mcg/24 hr (up 1 device intrauterine ONCE 04/18/21 03/11/24 History to 8 yrs) 52 mg intrauterine device (Liletta) cetirizine 10 mg capsule (Zyrtec) 10 mg PO DAILY PRN 09/19/21 03/11/24 History cholecalciferol (vitamin D3) 25 25 mcg PO DAILY 09/19/21 03/11/24 History mcg (1,000 unit) capsule spironolactone 100 mg tablet 100 mg PO DAILY #90 tabs 03/11/23 03/11/24 Rx levothyroxine 88 mcg tablet 88 mcg PO DAILY #90 tabs 09/29/23 03/11/24 Rx fluticasone propionate 50 1 spray intranasal DAILY PRN 03/11/24 03/11/24 History mcg/actuation nasal spray,suspension (Flonase Allergy Relief) venlafaxine 37.5 mg 37.5 mg PO QDAY #30 caps 03/11/24 03/11/24 Rx capsule,extended release 24 hr [facility] Medical History (Updated 03/11/24 @ 14:[address] Adelina Graves MD) Spasm of eyelids Anxiety and depression Health care maintenance Left knee pain Depression Preventative health care Obesity (BMI 30-39.9) Hypothyroidism Seasonal allergies Thyroid disorder Contraceptive management Surgical History History of tonsillectomy and adenoidectomy Col[place] teeth removed Family History Mother Diabetes Grandmother Colon cancer Hypertension Hyperlipemia Father Asthma Social History adopted: No household members: spouse and children number of children: 1 current occupational status: employed current occupation: [employer] pets and animals: Yes pets and animals: cat(s) and dog(s) sexually active: Yes Smoking Status: Former smoker quit date: 03/03/08 Tobacco: How many years used: 5 alcohol intake: current alcohol intake frequency: a few times a week substance use type: does not use and marijuana diet: lactose free caffeine: Yes (2) Type: coffee frequency: other details: active in yard seatbelt use: always do you feel safe at home: Yes HPI HPI Chief Complaint: 2 M FU Details: MARLON PERERA, is a 39 F who presents to the office today for follow-up. Since her last visit, weaned off Wellbutrin however, she states that since weaning off, she has felt less motivated/more depressed. She would like to try something else for depression. Had experienced worsening anxiety while on Wellbutrin and this has resolved. Has not been on any other medication. Has noted intermittent right eye twitching. No blurring of her vision or pain. Other chronic medical conditions are largely stable. ROS Const Constitutional: No body ache, chills, excessive sweating, fatigue, fever(s), frequent falls, headache(s), snoring, weight change, sleep problems, abnormal sleep pattern or change in appetite Eyes Eyes: No blurry vision, change in vision, floaters, visual disturbances, eye pain or Light sensitivity ENT ENT: No abnormal hearing, ear or mastoid pain, tinnitus, balance problems, nosebleed/epistaxis, nasal congestion, headache(s), neck pain or sore throat Resp Respiratory: No cough, excessive phlegm production, pain on inspiration, shortness of breath, snoring or wheezing Cardio Cardiology: No chest pain at rest, chest pain with exertion, excessive sweating, shortness of breath, dyspnea on exertion, lightheadedness, orthopnea or palpitations Gastro GI: No abdominal pain, change in bowel habits, constipation, cramping, diarrhea, nausea/dyspepsia or vomiting Genitourinary-Female: No burning urination, painful urination, urinary incontinence, urina (more content not included)... Normal [facility] Internal Medicine Office Vis iton 12-31-2023 Internal Medicine Office Visit [facility] [address] [place] [address] OFFICE VISIT Date of Service: 12/31/23 MR#: [id number] Acct: [id number] Name: MARLON PERERA Rep #: [id number] : 1985 Provider: Dr. Adelina brannon MD Age/Sex: 38/F Location: [facility] Status: Signed Intake Vital Signs 09/29/23 15:07 12/31/23 14:55 Height 5 ft 6 in 5 ft 6 in Weight: 237 lb BMI 38.2 BP 124/80 H Blood Pressure Location Lt brachial Position Sitting Respiration 17 Pulse 81 Pulse Source Monitor Temp 97.6 F L Temp Source Temporal Pulse Oximetry (%) 98 Oxygen Delivery Method room air Intake Visit Reasons: 3 M FU Chief Complaint: 3 M FU Is patient in pain?: No Allergies claudia Allergy (Intermediate, Verified 12/31/23 14:52) Rash cat dander Allergy (Verified 12/31/23 14:52) Itching dog dander Allergy (Verified 12/31/23 14:52) Itching Environmental Allergies: Uncoded Allergy (Verified 12/31/23 14:52) Itching poison pelon extract Allergy (Verified 12/31/23 14:52) Itching poison oak extract Allergy (Verified 12/31/23 14:52) Itching Seasonal Allergies: Uncoded Allergy (Verified 12/31/23 14:52) Itching Medications ???Medication ???Instructions ???Recorded ???Confirmed ???Type levonorgestrel 20.4 mcg/24 hr (up 1 device intrauterine ONCE 04/18/21 12/31/23 History to 8 yrs) 52 mg intrauterine device (Liletta) cetirizine 10 mg capsule (Zyrtec) 10 mg PO DAILY PRN 09/19/21 12/31/23 History cholecalciferol (vitamin D3) 25 25 mcg PO DAILY 09/19/21 12/31/23 History mcg (1,000 unit) capsule fluticasone propionate 50 1 spray intranasal DAILY 09/19/21 12/31/23 History mcg/actuation nasal spray,suspension (Flonase Allergy Relief) spironolactone 100 mg tablet 100 mg PO DAILY #90 tabs 03/11/23 12/31/23 Rx levothyroxine 88 mcg tablet 88 mcg PO DAILY #90 tabs 09/29/23 12/31/23 Rx bupropion HCl 150 mg 24 hr tablet, 300 mg (2 x 150 mg) PO QAM #60 tabs 12/31/23 12/31/23 Rx extended release PFSH Medical History Health care maintenance Left knee pain Depression Preventative health care Obesity (BMI 30-39.9) Hypothyroidism Seasonal allergies Thyroid disorder Contraceptive management Surgical History History of tonsillectomy and adenoidectomy Col[place] teeth removed Family History Mother Diabetes Grandmother Colon cancer Hypertension Hyperlipemia Father Asthma Social History adopted: No household members: spouse and children number of children: 1 current occupational status: employed current occupation: [employer] pets and animals: Yes pets and animals: cat(s) and dog(s) sexually active: Yes Smoking Status: Former smoker quit date: 03/03/08 Tobacco: How many years used: 5 alcohol intake: current alcohol intake frequency: a few times a week substance use type: does not use and marijuana diet: lactose free caffeine: Yes (2) Type: coffee frequency: other details: active in yard seatbelt use: always do you feel safe at home: Yes Questionnaire Depression Screen PHQ-2/9 PHQ-2 Over the last 2 weeks, how often have you been bothered by any of the following problems? 1. Little interest or pleasure in doing things: several days 2. Feeling down, depressed, or hopeless: not at all Total score: 1 HPI HPI Chief Complaint: 3 M FU Details: MARLON PERERA, is a 38 F who presents to the office today for for follow-up. No acute concerns at this time. At her last visit, due to ongoing dysthymia/depression, Wellbutrin was increased to 300mg. She however states that she does not believe there has been any significant symptom change however, has had more irritability and increased anxiety. Scored 1 on the PHQ 9. Other chronic medical conditions are stable. History of hypothyroidism on levothyroxine, TSH was stable at last check. No concerns at this time for over or under correction. ROS Const Constitutional: No body ache, chills, excessive sweating, fatigue, fever(s), frequent falls, headache(s), snoring, weight change, sleep problems, abnormal sleep pattern or change in appetite Eyes Eyes: No blurry vision, change in vision, floaters, visual disturbances, eye pain or Light sensitivity ENT ENT: No abnormal hearing, ear or mastoid pain, tinnitus, balance problems, nosebleed/epistaxis, nasal congestion, headache(s), neck pain or sore throat Resp Respiratory: No cough, excessive phlegm production, pain on inspiration, shortness of breath, snoring or wheezing Cardio Cardiology: No chest pain at rest, chest pain with exertion, excessive sweating, shortness of breath, (more content not included)... Normal [facility] CBC W/Diff, Automatedon 09-01 Absolute Lymph 2.49 X10 3/uL Normal 0.83-4.51 [facility] Comment on above: Performed By: #### L 501.9520, L100.0100, L500.4100, L500.4050 #### [facility] Laboratory [address] [place], [address] Absolute Neut 4.0 X10 3/uL Normal 2.0-7.7 [facility] Comment on above: Performed By: #### L 501.9520, L100.0100, L500.4100, L500.4050 #### [facility] [address] [place], [address] Basophils/100 WBC (Bld) 0.7 % Normal 0-1 [facility] Comment on above: Performed By: #### L 501.9520, L100.0100, L500.4100, L500.4050 #### [facility] [address] [place], [address] Eosinophils/100 WBC (Bld) 2.9 % Normal 0-5 [facility] Comment on above: Performed By: #### L 501.9520, L100.0100, L500.4100, L500.4050 #### [facility] [address] [place], [address] Erythrocyte distribution width (RBC) [Ratio] 14.0 % Normal 11.6-14.6 [facility] Comment on above: Performed By: #### L 501.9520, L100.0100, L500.4100, L500.4050 #### [facility] [address] [place], [address] Hematocrit (Bld) [Volume fraction] 39.4 % Normal 37-47 [facility] Comment on above: Performed By: #### L 501.9520, L100.0100, L500.4100, L500.4050 #### [facility] [address] [place], [address] Hemoglobin (Bld) [Mass/Vol] 13.1 g/dL Normal 12.0-15.0 [facility] Comment on above: Performed By: #### L 501.9520, L100.0100, L500.4100, L500.4050 #### [facility] [address] [place], [address] IG% 0.300 Normal 0.0-0.9 [facility] Comment on above: Result Comment: IG% - Immature Granulocytes (promyelocytes, myelocytes and metamyelocytes) > 1% indicates that a LEFT SHIFT is Present. Performed By: #### L 501.9520, L100.0100, L500.4100, L500.4050 #### [facility] [address] [place], [address] Lymphocytes/100 WBC (Bld) 34.3 % Normal 19-41 [facility] Comment on above: Performed By: #### L 501.9520, L100.0100, L500.4100, L500.4050 #### [facility] [address] [place], [address] MCH (RBC) [Entitic mass] 28.2 pg Normal 27.0-32.0 [facility] Comment on above: Performed By: #### L 501.9520, L100.0100, L500.4100, L500.4050 #### [facility] [address] [place], [address] MCHC (RBC) [Mass/Vol] 33.2 g/dL Normal 32-36 [facility] Comment on above: Performed By: #### L 501.9520, L100.0100, L500.4100, L500.4050 #### [facility] [address] [place], [address] MCV (RBC) [Entitic vol] 84.7 fL Normal 81-99 [facility] Comment on above: Performed By: #### L 501.9520, L100.0100, L500.4100, L500.4050 #### [facility] [address] [place], [address] Monocytes/100 WBC (Bld) 6.2 % Normal 0-10 [facility] Comment on above: Performed By: #### L 501.9520, L100.0100, L500.4100, L500.4050 #### [facility] [address] [place], [address] Neutrophils/100 WBC (Bld) 55.6 % Normal 47-70 [facility] Comment on above: Performed By: #### L 501.9520, L100.0100, L500.4100, L500.4050 #### [facility] [address] [place], [address] Nucleated RBC (Bld) [#/Vol] 0 10*3/uL Normal 0-5 [facility] Comment on above: Performed By: #### L 501.9520, L100.0100, L500.4100, L500.4050 #### [facility] [address] [place], [address] Platelet mean volume (Bld) [Entitic vol] 10.0 fL Normal 6.2-12.0 [facility] Comment on above: Performed By: #### L 501.9520, L100.0100, L500.4100, L500.4050 #### [facility] [address] [place], [address] Platelets (Bld) [#/Vol] 325 10*3/uL Normal 150-450 [facility] Comment on above: Performed By: #### L 501.9520, L100.0100, L500.4100, L500.4050 #### [facility] [address] [place], [address] RBC (Bld) [#/Vol] 4.65 10*6/uL Normal 4.2-5.[address] [facility] Comment on above: Performed By: #### L 501.9520, L100.0100, L500.4100, L500.4050 #### [facility] [address] [place], [address] RDW SD 42.7 fl Normal 35.1-43.9 [facility] Comment on above: Performed By: #### L 501.9520, L100.0100, L500.4100, L500.4050 #### [facility] [address] [place], [address] WBC (Bld) [#/Vol] 7.3 10*3/uL Normal 4.4-11.0 [facility] Comment on above: Performed By: #### L 501.9520, L100.0100, L500.4100, L500.4050 #### [facility] [address] [place], [address] Comprehensive Metabolic Prof [facility] 09-29-2023 Albumin [Mass/Vol] 3.8 g/dL Normal 3.2-5.0 [facility] Comment on above: Performed By: #### L 501.9520, L100.0100, L500.4100, L500.4050 #### [facility] [address] [place], [address] Albumin/Globulin [Mass ratio] 1.0 {ratio} Normal 0.9-2.4 [facility] Comment on above: Performed By: #### L 501.9520, L100.0100, L500.4100, L500.4050 #### [facility] [address] [place], [address] ALK P 63 U/L Normal 45-117 [facility] Comment on above: Performed By: #### L 501.9520, L100.0100, L500.4100, L500.4050 #### [facility] [address] [place], [address] ALT [Catalytic activity/Vol] 26 U/L Normal 13-56 [facility] Comment on above: Performed By: #### L 501.9520, L100.0100, L500.4100, L500.4050 #### [facility] [address] [place], [address] AST [Catalytic activity/Vol] 20 U/L Normal 15-37 [facility] Comment on above: Performed By: #### L 501.9520, L100.0100, L500.4100, L500.4050 #### [facility] [address] [place], [address] Bilirubin [Mass/Vol] 0.30 mg/dL Normal 0.20-1.00 [facility] Comment on above: Result Comment: For patients on eltrombopag therapy, use of Dimension [place] TBIL is not recommended. Performed By: #### L 501.9520, L100.0100, L500.4100, L500.4050 #### [facility] [address] [place], [address] BUN/CRE 12.5 RATIO Normal 10-20 [facility] Comment on above: Performed By: #### L 501.9520, L100.0100, L500.4100, L500.4050 #### [facility] [address] [place], [address] CA,Total 9.2 mg/dL Normal 8.5-10.1 [facility] Comment on above: Performed By: #### L 501.9520, L100.0100, L500.4100, L500.4050 #### [facility] [address] [place], [address] Chloride [Moles/Vol] 107 mmol/L Normal 98-107 [facility] Comment on above: Performed By: #### L 501.9520, L100.0100, L500.4100, L500.4050 #### [facility] [address] [place], [address] CO2 [Moles/Vol] 26.0 mmol/L Normal 21.0-32.0 [facility] Comment on above: Performed By: #### L 501.9520, L100.0100, L500.4100, L500.4050 #### [facility] [address] [place], [address] Creatinine [Mass/Vol] 1.04 mg/dL High 0.55-1.02 [facility] Comment on above: Result Comment: The validity of the calculated GFR GFRAA in patients over 70 years has not been determined. Clinical correlation is essential. Performed By: #### L 501.9520, L100.0100, L500.4100, L500.4050 #### [facility] [address] [place], [address] EST GFR - AA 75 mL/min Normal >60 [facility] Comment on above: Result Comment: Afri can Salvadorean GFR Calc Performed By: #### L 501.9520, L100.0100, L500.4100, L500.4050 #### [facility] [address] [place], [address] GAP 4 Low 5-15 [facility] Comment on above: Performed By: #### L 501.9520, L100.0100, L500.4100, L500.4050 #### [facility] [address] [place], [address] GFR/1.73 sq M.predicted among non-blacks MDRD (S/P/Bld) [Vol rate/Area] 62 mL/min/{1.73_m2} Normal >60 [facility] Comment on above: Result Comment: Non- GFR Calc Performed By: #### L 501.9520, L100.0100, L500.4100, L500.4050 #### [facility] [address] [place], [address] Globulin (S) [Mass/Vol] 4.0 g/dL Normal 2.2-4.2 [facility] Comment on above: Performed By: #### L 501.9520, L100.0100, L500.4100, L500.4050 #### [facility] Laboratory [address] [place], [address] Glucose [Mass/Vol] 95 mg/dL Normal 74-106 [facility] Comment on above: Performed By: #### L 501.9520, L100.0100, L500.4100, L500.4050 #### [facility] [address] [place], [address] Potassium [Moles/Vol] 3.6 mmol/L Normal 3.5-5.1 [facility] Comment on above: Performed By: #### L 501.9520, L100.0100, L500.4100, L500.4050 #### [facility] [address] [place], [address] Sodium [Moles/Vol] 137 mmol/L Normal 136-145 [facility] Comment on above: Performed By: #### L 501.9520, L100.0100, L500.4100, L500.4050 #### [facility] Laboratory [address] [place], [address] T PROT 7.8 g/dL Normal 6.4-8.2 [facility] Comment on above: Performed By: #### L 501.9520, L100.0100, L500.4100, L500.4050 #### [facility] Laboratory [address] [place], [address] Urea nitrogen [Mass/Vol] 13 mg/dL Normal 7-18 [facility] Comment on above: Performed By: #### L 501.9520, L100.0100, L500.4100, L500.4050 #### [facility] Laboratory [address] [place], [address] Internal Medicine Office Vis nory 09-29-2023 Internal Medicine Office Visit [facility] [address] [place] [address] [place] [address] OFFICE VISIT Date of Service: 09/29/23 MR#: [id number] Acct: [id number] Name: MARLON PERERA Rep #: [id number] : 1985 Provider: Dr. Adelina brannon MD Age/Sex: 38/F Location[place] [facility] Status: Signed Intake Vital Signs 09/19/22 17:47 06/19/23 16:01 09/29/23 15:07 Height 5 ft 6 in 5 ft 6 in 5 ft 6 in Weight: 233 lb BMI 37.5 BP 124/84 H Blood Pressure Location Lt brachial Position Sitting Respiration 14 Pulse 74 Pulse Source Monitor Temp 98.2 F Temp Source Temporal Pulse Oximetry (%) 98 Oxygen Delivery Method room air Intake Visit Reasons: 1 yr fu Chief Complaint: yearly check up Bread Racker Required: No Is patient in pain?: No Allergies claudia Allergy (Intermediate, Verified 09/29/23 14:57) Rash cat dander Allergy (Verified 09/29/23 14:57) Itching dog dander Allergy (Verified 09/29/23 14:57) Itching Environmental Allergies: Uncoded Allergy (Verified 09/29/23 14:57) Itching poison pelon extract Allergy (Verified 09/29/23 14:57) Itching poison oak extract Allergy (Verified 09/29/23 14:57) Itching Seasonal Allergies: Uncoded Allergy (Verified 09/29/23 14:57) Itching Medications ???Medication ???Instructions ???Recorded ???Confirmed ???Type levonorgestrel 20.4 mcg/24 hr (up 1 device intrauterine ONCE 04/18/21 09/29/23 History to 8 yrs) 52 mg intrauterine device (Liletta) cetirizine 10 mg capsule (Zyrtec) 10 mg PO DAILY PRN 09/19/21 09/29/23 History cholecalciferol (vitamin D3) 25 25 mcg PO DAILY 09/19/21 09/29/23 History mcg (1,000 unit) capsule fluticasone propionate 50 1 spray intranasal DAILY 09/19/21 09/29/23 History mcg/actuation nasal spray,suspension (Flonase Allergy Relief) spironolactone 100 mg tablet 100 mg PO DAILY #90 tabs 03/11/23 09/29/23 Rx levothyroxine 88 mcg tablet 88 mcg PO DAILY #90 tabs 04/16/23 09/29/23 Rx Balanced barrier Vitamin OTHER 09/29/23 History bupropion HCl 300 mg 24 hr tablet, 300 mg PO QAM #90 tabs 09/29/23 09/29/23 Rx extended release PFSH Medical History (Updated 09/29/23 @ 17:[address] Adelina Graves MD) Health care maintenance Left knee pain Depression Preventative health care Obesity (BMI 30-39.9) Hypothyroidism Seasonal allergies Thyroid disorder Contraceptive management Surgical History History of tonsillectomy and adenoidectomy [place] teeth removed Family History Mother Diabetes Grandmother Colon cancer Hypertension Hyperlipemia Father Asthma Social History (Updated 09/29/23 @ 15:06 by Pam Mathew MA) adopted: No household members: spouse and children number of children: 1 current occupational status: employed current occupation: [employer] pets and animals: Yes pets and animals: cat(s) and dog(s) sexually active: Yes Smoking Status: Former smoker quit date: 03/03/08 Tobacco: How many years used: 5 alcohol intake: current alcohol intake frequency: a few times a week substance use type: does not use and marijuana diet: lactose free caffeine: Yes (2) Type: coffee frequency: other details: active in yard seatbelt use: always do you feel safe at home: Yes HPI HPI Chief Complaint: yearly check up Details: MARLON PERERA, is a 38 F who presents to the office today for yearly visit. Also has some concerns. She reports left knee pain which started a few months ago. Had an abrupt movement while playing pickle ball, pain started subsequently. Typically, with certain position, pain is reproducible. Still able to bear weight. Has not tried any medication or interventions for this. Recently started on Wellbutrin by CLERICAL METHODS ANALYST due to concern for depression/dysthymia. She states that she has been taking it consistently but has not noted any significant change or improvement. No concerning side effects. History of hypothyroidism on levothyroxine. She reports compliance with her medication. She would like a refill. Other chronic conditions are otherwise stable. ROS Const Constitutional: No body ache, chills, excessive sweating, fatigue, fever(s), frequent falls, headache(s), snoring, weakness, sleep problems or change in appetite Eyes Eyes: No blurry vision, change in vision, floaters, visual disturbances, eye pain or Light sensitivity ENT ENT: No abnormal hearing, ear or mastoid pain, tinnitus, balance problems, nosebleed/epistaxis, nasal congestion, headache(s), neck pain or sore throat Resp Respiratory: No cough, excessive phlegm production, pain on inspiration, shortness of breath, snoring or wheezing Cardio Cardiology: No chest pain at rest, chest pain with exertion, exc (more content not included)... Normal [facility] Lipid Profileon 09-29-2023 Cholesterol [Mass/Vol] 149 mg/dL Normal [address] [facility] Comment on above: Result Comment: <200 mg/dL Desirable 200-240 mg/dL Borderline >240 mg/dL High Risk Performed By: #### L 501.9520, L100.0100, L500.4100, L500.4050 #### [facility] [address] [place], [address] Cholesterol in HDL [Mass/Vol] 52 mg/dL Normal [facility] Comment on above: Result Comment: The drugs N-Acetylcysteine and Metamizole may falsely depress this assay. Reference Range HDL <40 mg/dL Low HDL Cholesterol HDL >or= 60 mg/dL High HDL Cholesterol Performed By: #### L 501.9520, L100.0100, L500.4100, L500.4050 #### [facility] [address] [place], [address] Cholesterol in LDL [Mass/Vol] 56 mg/dL Normal 0-130 [facility] Comment on above: Performed By: #### L 501.9520, L100.0100, L500.4100, L500.4050 #### [facility] [address] [place], [address] Cholesterol in VLDL [Mass/Vol] 41 mg/dL High 5-40 [facility] Comment on above: Performed By: #### L 501.9520, L100.0100, L500.4100, L500.4050 #### [facility] [address] [place], [address] Triglyceride [Mass/Vol] 205 mg/dL High [facility] Comment on above: Result Comment: The drugs N-Acetylcysteine and Metamizole may falsely depress this assay. Serum Triglycerides Reference Interval Normal <150 mg/dL Borderline high 150 - 199 mg/dL High 200 - 499 mg/dL Very High > or = 500 mg/dL Performed By: #### L 501.9520, L100.0100, L500.4100, L500.4050 #### [facility] [address] [place], [address] Thyroid Stim Hormone (TSH)on 09-29-2023 TSH 1.58 uIU/mL Normal 0.358-3.74 [facility] Comment on above: Performed By: #### L 501.9520, L100.0100, L500.4100, L500.4050 #### [facility] Laboratory [address] [place], [place], [id number] Serum or plasma thyroid stim ulating hormone (TSH) measurement (units/volume)Ordered By: Saud Spears on 04-26-2023 TSH Qn 2.16 uIU/mL 0.358-3.74 [facility] Absolute lymphocyte countOrd ered By: Adelina Graves on 10-05-2022 Lymphocytes Auto (Unsp spec) [#/Vol] 2.46 10*3/uL 0.83-4.51 [facility] Basophil percentageOrdered B y: Adelina Graves on 10-05-2022 Basophils/100 WBC (Bld) 0.8 % 0-1 [facility] Bilirubin [Mass/Vol] 0.20 mg/dL 0.20-1.00 [facility] Comment on above: For patients on eltr ombopag therapy, use of Dimension [place] TBIL is not recommended. Chloride [Moles/Vol] 105 mmol/L 98-107 [facility] Cholesterol [Mass/Vol] 157 mg/dL <[address] [facility] Comment on above: <200 mg/dL Desirable 200-240 mg/dL Borderline >240 mg/dL High Risk Eosinophils/100 WBC (Bld) 4.6 % 0-5 [facility] Glucose [Mass/Vol] 104 mg/dL 74-106 [facility] Comment on above: Fasting Glucose resu lt from 100 to 125 mg/dL suggests IMPAIRED HOMEOSTASIS per A.D.A. criteria. Neutrophils (Bld) [#/Vol] 4.0 10*3/uL 2.0-7.7 [facility] Neutrophils/100 WBC (Bld) 53.6 % 47-70 [facility] Potassium [Moles/Vol] 4.2 mmol/L 3.5-5.1 [facility] Protein [Mass/Vol] 7.8 g/dL 6.4-8.2 [facility] Sodium [Moles/Vol] 139 mmol/L 136-145 [facility] Triglyceride [Mass/Vol] 162 mg/dL <199 [facility] Comment on above: The drugs N-Acetylcy steine and Metamizole may falsely depress this assay.Serum Triglycerides Reference Interval Normal <150 mg/dL Borderline high 150 - 199 mg/dL High 200 - 499 mg/dL Very High > or = 500 mg/dL WBC (Bld) [#/Vol] 7.4 10*3/uL 4.4-11.0 [facility] Blood erythrocytes count (nu mber/volume)Ordered By: Adelina Graves on 10-05-2022 RBC (Bld) [#/Vol] 4.81 10*6/uL 4.2-5.[address] [facility] Blood hemoglobin measurement (mass/volume)Ordered By: Adelina Graves on 10-05-2022 Hemoglobin (Bld) [Mass/Vol] 13.9 g/dL 12.0-15.0 [facility] Blood lymphocytes/100 leukoc ytesOrdered By: Adelina Graves on 10-05-2022 Lymphocytes/100 WBC (Bld) 33.2 % 19-41 [facility] Blood monocytes/100 leukocyt esOrdered By: Adelina Graves on 10-05-2022 Monocytes/100 WBC (Bld) 7.4 % 0-10 [facility] Blood platelet mean volumeOr dered By: Adelina Graves on 08-05-2023 Platelet mean volume (Bld) [Entitic vol] 10.1 fL 6.2-12.0 [facility] Determination of erythrocyte mean corpuscular volume (MCV)Ordered By: Adelina Graves on 10-05-2022 MCV (RBC) [Entitic vol] 88.6 fL 81-99 [facility] Hematocrit Auto (Bld) [Volum e fraction]Ordered By: Adelina Graves on 10-05-2022 Hematocrit (Bld) [Volume fraction] 42.6 % 37-47 [facility] Laboratory - Chemistry and C hemistry - challengeOrdered By: chandamaggie valleykarl Graves on 10-05-2022 ALP [Catalytic activity/Vol] 60 U/L 45-117 [facility] ALT [Catalytic activity/Vol] 27 U/L 13-56 [facility] CO2 [Moles/Vol] 25.0 mmol/L 21.0-32.0 [facility] Globulin (S) [Mass/Vol] 4.0 g/dL 2.2-4.2 [facility] Urea nitrogen/Creatinine [Mass ratio] 15.4 mg/mg 10-20 [facility] Laboratory - Hematology and Cell countsOrdered By: Giulianamaggie valleykarl Graves on 10-05-2022 Erythrocyte distribution width (RBC) [Entitic vol] 43.5 fL 35.1-43.9 [facility] Erythrocyte distribution width (RBC) [Ratio] 13.2 % 11.6-14.6 [facility] Immature granulocytes/100 WBC (Bld) 0.400 % 0.0-0.9 [facility] Comment on above: IG% - Immature Granu locytes (promyelocytes, myelocytes and metamyelocytes) > 1% indicates that a LEFT SHIFT is Present. MCH (RBC) [Entitic mass] 28.9 pg 27.0-32.0 [facility] Nucleated RBC/100 WBC (Bld) [Ratio] 0 % 0-5 [facility] MCHC Auto (RBC) [Mass/Vol]Or dered By: Adelina Graves on 10-05-2022 MCHC (RBC) [Mass/Vol] 32.6 g/dL 32-36 [facility] No Panel InformationOrdered By: Adelina Graves on 10-05-2022 Estimated GFR (MDRD) Amer 81 mL/min >60 [facility] Comment on above: GFR Calc Estimated GFR (MDRD) Non-Af Amer 67 mL/min >60 [facility] Comment on above: Non- GFR Calc Thyroid Stimulating Hormone (TSH) 4.77 uIU/mL 0.358-3.74 [facility] Platelets bldOrdered By: Serjio Graves on 10-05-2022 Platelets (Bld) [#/Vol] 343 10*3/uL 150-450 [facility] Serum or plasma albumin geeta urement (mass/volume)Ordered By: Adelina Graves on 10-05-2022 Albumin [Mass/Vol] 3.8 g/dL 3.2-5.0 [facility] Serum or plasma albumin/glob ulin mass ratioOrdered By: Adelina Graves on 10-05-2022 Albumin/Globulin [Mass ratio] 1.0 {ratio} 0.9-2.4 [facility] Serum or plasma calcium geeta urement (mass/volume)Ordered By: Adelina Graves on 10-05-2022 Calcium [Mass/Vol] 9.0 mg/dL 8.5-10.1 [facility] Serum or plasma cholesterol in HDL measurement (mass/volume)Ordered By: Adelina Graves on 10-05-2022 Cholesterol in HDL [Mass/Vol] 49 mg/dL >40 [facility] Comment on above: The drugs N-Acetylcy steine and Metamizole may falsely depress this assay. Reference Range HDL <40 mg/dL Low HDL Cholesterol HDL >or= 60 mg/dL High HDL Cholesterol Serum or plasma cholesterol in VLDL measurement (mass/volume)Ordered By: Adelina Graves on 10-05-2022 Cholesterol in VLDL [Mass/Vol] 32 mg/dL 5-40 [facility] Serum or plasma creatinine m easurement (mass/volume)Ordered By: Adelina Graves on 10-05-2022 Creatinine [Mass/Vol] 0.98 mg/dL 0.55-1.02 [facility] Comment on above: The validity of the calculated GFR & GFRAA in patients over 70 years has not been determined. Clinical correlation is essential. Serum or plasma low density lipoprotein (LDL) cholesterol measurement (mass/volume)Ordered By: Adelina Graves on 10-05-2022 Cholesterol in LDL [Mass/Vol] 76 mg/dL 0-130 [facility] Serum or plasma urea nitroge n measurement (mass/volume)Ordered By: Adelina Graves on 10-05-2022 Urea nitrogen [Mass/Vol] 15 mg/dL 7-18 [facility] Thin prep Papanicolaou smear with manual screeningOrdered By: Adelina Graves on 10-05-2022 Thin prep Papanicolaou smear with manual screening 19 U/L 15-37 [facility] Thin prep Papanicolaou smear with manual screening 9 5-15 [facility] CNOVon 08-18-2022 CNOV Office Visit (UCWSTR ) MARLON PERERAE ([id number]) 1985 F Date Time Provider Department 08/18/22 11:00 AM ANITA MONTAGUE [facility] During your visit today, we recorded the following information about you: Temperature Pulse Respiration Blood pressure 97.9 degrees 110/minute 16/minute 120/68 Weight 105.2 kg Anita Montague APRN.CNP 08/18/2022 11:02 AM Signed Subjective Came in with complaints of itching rash has 1 spot on the right leg 2 spots on the left leg and some on the right arm. Patient says she was doing yard work and weeding. Patient was not sure if they were fly bites or something else. Patient denies any other symptoms. The history is provided by the patient. No staple shear operator was used. Rash Review of Systems Constitutional: [...] file. ALLERGIES Cat Dander, Dog Dander, Poison [place] Extract, and Seasonal Allergies MEDICATIONS levothyroxine (SYNTHROID) [...] was okay with this care plan. Anita Montague APRN.DRUG SAFETY PHYSICIAN Referring Provider: SELF [200] Allergies As of Date: 08/18/2022 Noted Allergy Reaction CAT DANDER 08/20/2021 5 - Intolerance DOG DANDER 08/20/2021 5 - Intolerance POISON PEL[place] EXTRACT 08/20/2021 2 - Rash Comments: [place], [place], [place] SEASONAL ALLERGIES 08/20/2021 5 - Intolerance Date Reviewed: 08/18/2022 Reviewed by: Roseanne Smith - Fully Assessed Reason for Visit: Rash [1087] Cmt: on arms and legs x 2 weeks after fly bites, increased x 1 week ago Primary Visit Diagnosis:Allergic contact dermatitis due to plants, except food [L23.7] Order(s):predniSONE (DELTASONE) 10 mg tabletTake 4 tabs daily for 3 days, then 2 tabs daily for 3 days, then 1 tab daily for 3 days with food.Disp: 21 tabletRfl: 0 Prescriptions as of 08/18/2022 - predniSONE (DELTASONE) 10 mg tablet Take 4 tabs daily for 3 days, then 2 tabs daily for 3 days, then 1 tab daily for 3 days with food. - levothyroxine (SYNTHROID) 50 mcg tablet TAKE 1 TABLET BY MOUTH DAILY EXCEPT ON THE 7TH DAY EACH WEEK TAKE 1.5 TABLETS - spironolactone (ALDACTONE) 100 mg tablet - levonorgestrel 20.1 mcg/24 hrs (6 yrs) 52 mg IUD Levonorgestrel (Liletta) 20.1 mcg/24 hrs (6 yrs) 52 mg intrauterine device Active 1 DEVICE INTRA-UTER ONCE April 18, 2021 4:39pm as a single dose Problem List As Of Date: 08/18/2022 (None) Prescriptions ordered this encounter Disp Refills Start End PREDNISONE 10 MG TABLET 21 t* 0 08/18/2022 Sig: Take 4 tabs daily for 3 days, then 2 tabs daily for 3 days, then 1 tab daily for 3 days with food. Encounter Status:Closed by ANITA MONTAGUE on 08/18/22 Normal [facility] No Panel Informationon 02-09 Thyroid Stimulating Hormone (TSH) 3.09 uIU/mL 0.358-3.74 [facility] Work Phone: Basophil percentageon 2021 Basophil percentage 25-50 SEEN /hpf 0-5 [facility] Work Phone: Bilirubin Test strip Ql (U)o n 01-16-2022 Bilirubin Ql (U) Negative Negative [facility] Work Phone: Ketones Test strip Ql (U)on 01-16-2022 Ketones Ql (U) Negative Negative [facility] Work Phone: Mucus LM Ql (Urine sed)on Mucus Ql (Urine sed) 0 SEEN /hpf [facility] Work Phone: Nitrite Test strip Ql (U)on 01-16-2022 Nitrite Ql (U) Negative Negative [facility] Work Phone: Protein Test strip Ql (U)on 01-16-2022 Protein Ql (U) 15 mg/dl Negative [facility] Work Phone: Squamous epithelial cells de tection in urine sediment by light microscopyon 01-16-2022 Epithelial cells.squamous LM Ql (Urine sed) 0-5 SEEN /hpf 5-10 [facility] Work Phone: Urine blood detectionon 01-01 RBC Ql (U) 150 /ul Negative [facility] Work Phone: RBC Ql (U) 0-5 SEEN /hpf 0-5 [facility] Work Phone: Urine clarityon 01-16-2022 Clarity (U) Sl. Cloudy Clear [facility] Work Phone: Urine color determinationon 01-16-2022 Color (U) Yellow Yellow [facility] Work Phone: Urine glucose detectionon Glucose Ql (U) Normal mg/dl Normal [facility] Work Phone: Urine leukocyte esterase det ection by dipstickon 01-16-2022 Leukocyte esterase Test strip Ql (U) 500 /ul Negative [facility] Work Phone: Urine pHon 01-16-2022 pH (U) 6.0 [pH] 5.0 - 8.0 [facility] Work Phone: Urine sediment bacteria coun t by microscopy (number/high power field)on 01-16-2022 Bacteria LM.HPF (Urine sed) [#/Area] 1 /[HPF] None Seen [facility] Work Phone: Urine specific gravity measu rementon 01-16-2022 Specific gravity (U) [Rel density] 1.015 1.002-1.030 [facility] Work Phone: Urobilinogen Auto test strip Ql (U)on 01-16-2022 Urobilinogen Ql (U) Normal mg/dl Normal [facility] Work Phone: No Panel Informationon 12-08 Thyroid Stimulating Hormone (TSH) 4.90 uIU/mL 0.358-3.74 [facility] Work Phone: Absolute lymphocyte counton 09-29-2021 Lymphocytes Auto (Unsp spec) [#/Vol] 2.01 10*3/uL 0.83-4.51 [facility] Work Phone: Basophil percentageon 2021 Basophils/100 WBC (Bld) 0.6 % 0-1 [facility] Work Phone: Bilirubin [Mass/Vol] 0.50 mg/dL 0.20-1.00 [facility] Work Phone: Comment on above: For patients on eltr ombopag therapy, use of Dimension [place] TBIL is not recommended. Chloride [Moles/Vol] 105 mmol/L 98-107 [facility] Work Phone: Eosinophils/100 WBC (Bld) 7.2 % 0-5 [facility] Work Phone: Glucose [Mass/Vol] 100 mg/dL 74-106 [facility] Work Phone: Comment on above: Fasting Glucose resu lt from 100 to 125 mg/dL suggests IMPAIRED HOMEOSTASIS per A.D.A. criteria. Neutrophils (Bld) [#/Vol] 3.3 10*3/uL 2.0-7.7 [facility] Work Phone: Neutrophils/100 WBC (Bld) 53.0 % 47-70 [facility] Work Phone: Potassium [Moles/Vol] 4.0 mmol/L 3.5-5.1 [facility] Work Phone: [phone] Protein [Mass/Vol] 7.3 g/dL 6.4-8.2 [facility] Work Phone: [phone] Sodium [Moles/Vol] 137 mmol/L 136-145 [facility] Work Phone: WBC (Bld) [#/Vol] 6.2 10*3/uL 4.4-11.0 [facility] Work Phone: Blood erythrocytes count (nu mber/volume)on 09-29-2021 RBC (Bld) [#/Vol] 4.63 10*6/uL 4.2-5.4 [facility] Work Phone: Blood hemoglobin measurement (mass/volume)on 09-29-2021 Hemoglobin (Bld) [Mass/Vol] 12.1 g/dL 12.0-15.0 [facility] Work Phone: Blood lymphocytes/100 leukoc yteson 09-29-2021 Lymphocytes/100 WBC (Bld) 32.4 % 19-41 [facility] Work Phone: Blood monocytes/100 leukocyt eson 09-29-2021 Monocytes/100 WBC (Bld) 6.6 % 0-10 [facility] Work Phone: Blood platelet mean volumeon 09-29-2021 Platelet mean volume (Bld) [Entitic vol] 9.7 fL 6.2-12.0 [facility] Work Phone: Determination of erythrocyte mean corpuscular volume (MCV)on 09-29-2021 MCV (RBC) [Entitic vol] 82.5 fL 81-99 [facility] Work Phone: Hematocrit Auto (Bld) [Volum e fraction]on 09-29-2021 Hematocrit (Bld) [Volume fraction] 38.2 % 37-47 [facility] Work Phone: Laboratory - Chemistry and C hemistry - challengeon 09-29-2021 ALP [Catalytic activity/Vol] 58 U/L 45-117 [facility] Work Phone: ALT [Catalytic activity/Vol] 24 U/L 13-56 [facility] Work Phone: CO2 [Moles/Vol] 26.0 mmol/L 21.0-32.0 [facility] Work Phone: Globulin (S) [Mass/Vol] 3.5 g/dL 2.2-4.2 [facility] Work Phone: Urea nitrogen/Creatinine [Mass ratio] 13.9 mg/mg 10-20 [facility] Work Phone: Laboratory - Hematology and Cell countson 09-29-2021 Erythrocyte distribution width (RBC) [Entitic vol] 47.9 fL 35.1-43.9 [facility] [employer] Work Phone: Erythrocyte distribution width (RBC) [Ratio] 15.9 % 11.6-14.6 [facility] Work Phone: Immature granulocytes/100 WBC (Bld) 0.200 % 0.0-0.9 [facility] Work Phone: Comment on above: IG% - Immature Granu locytes (promyelocytes, myelocytes and metamyelocytes) > 1% indicates that a LEFT SHIFT is Present. MCH (RBC) [Entitic mass] 26.1 pg 27.0-32.0 [facility] Work Phone: Nucleated RBC/100 WBC (Bld) [Ratio] 0 % 0-5 [facility] Work Phone: MCHC Auto (RBC) [Mass/Vol]on 09-29-2021 MCHC (RBC) [Mass/Vol] 31.7 g/dL 32-36 [facility] Work Phone: No Panel Informationon 09-29 Estimated GFR (MDRD) Amer 86 mL/min >60 [facility] Work Phone: Comment on above: GFR Calc Estimated GFR (MDRD) Non-Af Amer 71 mL/min >60 [facility] Work Phone: Comment on above: Non- GFR Calc Thyroid Stimulating Hormone (TSH) 5.10 uIU/mL 0.358-3.74 [facility] Work Phone: Platelets bldon 09-29-2021 Platelets (Bld) [#/Vol] 368 10*3/uL 150-450 [facility] Work Phone: Serum or plasma albumin geeta urement (mass/volume)on 09-29-2021 Albumin [Mass/Vol] 3.8 g/dL 3.2-5.0 [facility] Work Phone: Serum or plasma albumin/glob ulin mass ratioon 09-29-2021 Albumin/Globulin [Mass ratio] 1.1 {ratio} 0.9-2.4 [facility] Work Phone: Serum or plasma calcium geeta urement (mass/volume)on 09-29-2021 Calcium [Mass/Vol] 8.9 mg/dL 8.5-10.1 [facility] Work Phone: Serum or plasma creatinine m easurement (mass/volume)on 09-29-2021 Creatinine [Mass/Vol] 0.93 mg/dL 0.55-1.02 [facility] Work Phone: Comment on above: The validity of the calculated GFR & GFRAA in patients over 70 years has not been determined. Clinical correlation is essential. Serum or plasma urea nitroge n measurement (mass/volume)on 09-29-2021 Urea nitrogen [Mass/Vol] 13 mg/dL 7-18 [facility] Work Phone: Thin prep Papanicolaou smear with manual screeningon 09-29-2021 Thin prep Papanicolaou smear with manual screening 16 U/L 15-37 [facility] Work Phone: Thin prep Papanicolaou smear with manual screening 6 5-15 [facility] Work Phone: CNOVon 08-20-2021 CNOV Office Visit ([facility] ) MARLON PERERA ([id number]) 1985 F Date Time Provider Department 08/20/21 7:15 PM ANITA MONTAGUE [facility] During your visit today, we recorded the following information about you: Temperature Pulse Respiration Blood pressure 98.3 degrees 96/minute 20/minute 110/82 Weight 104.7 kg Anita Montague APRN.[facility] 08/20/2021 7:44 PM Signed Subjective Patient came in with complaints of possible infected bug bites on right lower outer ankle. Said there is some redness and swelling now. Denies any pain or difficulty moving joints. denies any other symptoms at this time. The history is provided by the patient. No staple shear operator was used. Review of Systems Constitutional: Negative. [...] file. ALLERGIES Cat Dander, Dog Dander, Poison Pelon Extract, and Seasonal Allergies MEDICATIONS levothyroxine (SYNTHROID) [...] was okay with this care plan. Anita Montague APRN.DRUG SAFETY PHYSICIAN Referring Provider: SELF [200] Allergies As of Date: 08/20/2021 Noted Allergy Reaction CAT DANDER 08/20/2021 5 - Intolerance DOG DANDER 08/20/2021 5 - Intolerance POISON PELON EXTRACT 08/20/2021 2 - Rash Comments: [place], [place], [place] SEASONAL ALLERGIES 08/20/2021 5 - Intolerance Date Reviewed: 08/20/2021 Reviewed by: Jeanette Martinez MA - Fully Assessed Reason for Visit: Insect Bite [929] Cmt: R ankle x3 days Primary Visit Diagnosis:Insect bite of right lower leg, initial encounter [S80.861A, W57.XXXA] Order(s):doxycycline monohydrate 100 mg tabletTake 1 tablet by mouth twice daily for 5 days.Disp: 10 tabletRfl: 0 Prescriptions as of 08/20/2021 - levothyroxine (SYNTHROID) 50 mcg tablet TAKE 1 TABLET BY MOUTH DAILY EXCEPT ON THE 7TH DAY EACH WEEK TAKE 1.5 TABLETS - spironolactone (ALDACTONE) 100 mg tablet - levonorgestrel 20.1 mcg/24 hrs (6 yrs) 52 mg IUD Levonorgestrel (Liletta) 20.1 mcg/24 hrs (6 yrs) 52 mg intrauterine device Active 1 DEVICE INTRA-UTER ONCE April 18, 2021 4:39pm as a single dose - doxycycline monohydrate 100 mg tablet Take 1 tablet by mouth twice daily for 5 days. Problem List As Of Date: 08/20/2021 (None) Prescriptions ordered this encounter Disp Refills Start End DOXYCYCLINE MONOHYDRATE 100 MG TABLET 10 t* 0 08/20/2021 08/25/2021 Route: ORAL Sig: Take 1 tablet by mouth twice daily for 5 days. Encounter Status:Closed by ANITA MONTAGUE on 08/20/21 Normal [facility] - Chemistry and C hemistry - challengeon 06-05-2021 Free T4 [Mass/Vol] 1.02 ng/dL 0.76-1.46 [facility] Work Phone: No Panel Informationon 06-05 Thyroid Stimulating Hormone (TSH) 7.24 uIU/mL 0.358-3.74 [facility] Work Phone: Basophil percentageon 2021 Cholesterol [Mass/Vol] 164 mg/dL <[address] [facility] Work Phone: Comment on above: <200 mg/dL Desirable 200-240 mg/dL Borderline >240 mg/dL High Risk Glucose [Mass/Vol] 88 mg/dL 74-106 [facility] Work Phone: Triglyceride [Mass/Vol] 181 mg/dL [facility] Work Phone: Comment on above: The drugs N-Acetylcy steine and Metamizole may falsely depress this assay.Serum Triglycerides Reference Interval Normal <150 mg/dL Borderline high 150 - 199 mg/dL High 200 - 499 mg/dL Very High > or = 500 mg/dL No Panel Informationon 05-29 Thyroid Stimulating Hormone (TSH) 6.06 uIU/mL 0.358-3.74 [facility] Work Phone: Vitamin D 25-Hydroxy 20.8 ng/mL [facility] Work Phone: Comment on above: Vitamin D 25(OH) Sta tus Range Deficiency <20 ng/mL (50nmol/L) Insufficiency 20 - 30 ng/mL (50 - 75 nmol/L) Sufficiency 30 - 100 ng/mL (75 - 250 nmol/L) Toxicity >100 ng/mL (>250 nmol/L) Serum or plasma cholesterol in HDL measurement (mass/volume)on 05-29-2021 Cholesterol in HDL [Mass/Vol] 50 mg/dL [facility] Work Phone: Comment on above: The drugs N-Acetylcy steine and Metamizole may falsely depress this assay. Reference Range HDL <40 mg/dL Low HDL Cholesterol HDL >or= 60 mg/dL High HDL Cholesterol Serum or plasma cholesterol in VLDL measurement (mass/volume)on 05-29-2021 Cholesterol in VLDL [Mass/Vol] 36 mg/dL 5-40 [facility] Work Phone: Serum or plasma low density lipoprotein (LDL) cholesterol measurement (mass/volume)on 03-29-2022 Cholesterol in LDL [Mass/Vol] 78 mg/dL 0-130 [facility] Work Phone: Cervical or vagninal specime n microscopic examination by cytology stain (reported ason 05-25-2021 Cytology report Cyto stain Doc (Cvx/Vag) Comment [facility] Work Phone: Comment on above: The Pap smear is a s creening test designed to aid in thedetection of premalignant and malignant conditions of theuterine cervix. It is not a diagnostic procedure andshould not be used as the sole means of detecting cervicalcancer. Both false-positive and false-negative reports dooccur. Detection in cervical specim en of any of human papilloma virus (HPV) 16, 18, 31, 33,on 05-25-2021 HPV 16+18+31+33+35+39+45+51 +52+56+58+59+66+68 DNA Probe+sig amp Ql (Cvx) Negative Negative [facility] Work Phone: Comment on above: This nucleic acid am plification test detects fourteen high-risk HPV types (16,18,31,33,35,39,45,51,52,56,58,59,66,68)without differentiation.Performed at: - [facility] [id number] Director: Parvin Garces MD, Phone: [phone] at: =[facility] [id number] Director: Parvin Garces MD, Phone: [phone] Laboratory - Cytologyon 05-02 Gifted Program Teacher Cyto stain Nom (Cvx/Vag) [ID] Comment [facility] Work Phone: Comment on above: Valencia Holland, Cyto technologist (ASCP) Laboratory - Miscellaneous t estson 05-25-2021 Service comment (Unsp spec) [Interp] Comment [facility] Work Phone: Comment on above: This liquid based Th inPrep(R) pap test was screened withthe use of an image guided system. Service comment (Unsp spec) [Interp] . [facility] Work Phone: No Panel Informationon 05-25 Pathology report final diagnosis Narrative Comment [facility] Work Phone: Comment on above: NEGATIVE FOR INTRAEP ITHELIAL LESION OR MALIGNANCY. Culture, urine Bacteria identified Cx Nom (U) Escherichia coli [facility] Work Phone: Vital Signs Date Time Vital Sign Value Performing Clinician Facility 09-16-2024 17:01-0400 Body height 167.[address] Adelina Graves MD Work Phone: [facility] 09-16-2024 17:01-0400 Body mass index (BMI) [Ratio] 36.6 kg/m2 Dr. Adelina Graves MD Work Phone: [facility] 09-16-2024 17:01-0400 Body temperature 97.6 [degF] Dr. Adelina Graves MD Work Phone: [facility] 09-16-2024 17:01-0400 Body weight 103.[address] Adelina Graves MD Work Phone: [facility] 09-16-2024 17:01-0400 Diastolic blood pressure 68 mm[Hg] Dr. Adelina Graves MD Work Phone: [facility] 09-16-2024 17:01-0400 Heart rate 90 /min Dr. Adelina Graves MD Work Phone: [facility] 09-16-2024 17:01-0400 Respiratory rate 16 /min Dr. Adelina Graves MD Work Phone: [facility] 09-16-2024 17:01-0400 SaO2% (BldA) [Mass fraction] 97 % Dr. Adelina Graves MD Work Phone: [facility] 09-16-2024 17:01-0400 Systolic blood pressure 114 mm[Hg] Dr. Adelina Graves MD Work Phone: [facility] 07-16-2024 13:26-0400 Body height 167.[address] Adelina Graves MD Work Phone: [facility] 07-16-2024 13:26-0400 Body mass index (BMI) [Ratio] 35.4 kg/m2 Dr. Adelina Graves MD Work Phone: [facility] 07-16-2024 13:26-0400 Body weight 99.[address] Adelina Graves MD Work Phone: [facility] 07-16-2024 13:26-0400 Diastolic blood pressure 80 mm[Hg] Dr. Adelina Graves MD Work Phone: [facility] 07-16-2024 13:26-0400 Systolic blood pressure 122 mm[Hg] Dr. Adelina Graves MD Work Phone: [facility] 06-09-2024 17:01-0400 Body height 167.[address] Adelina Graves MD Work Phone: [facility] 06-09-2024 17:01-0400 Body mass index (BMI) [Ratio] 36.2 kg/m2 Dr. Adelina Graves MD Work Phone: [facility] 06-09-2024 17:01-0400 Body temperature 97.8 [degF] Dr. Adelina Graves MD Work Phone: [facility] 06-09-2024 17:01-0400 Body weight 101.[address] Adelina Graves MD Work Phone: [facility] 06-09-2024 17:01-0400 Diastolic blood pressure 92 mm[Hg] Dr. Adelina Graves MD Work Phone: [facility] 06-09-2024 17:01-0400 Heart rate 78 /min Dr. Adelina Graves MD Work Phone: [facility] 06-09-2024 17:01-0400 Respiratory rate 16 /min Dr. Adelina Graves MD Work Phone: [facility] 06-09-2024 17:01-0400 SaO2% (BldA) [Mass fraction] 96 % Dr. Adelina Graves MD Work Phone: [facility] 06-09-2024 17:01-0400 Systolic blood pressure 120 mm[Hg] Dr. Adelina Graves MD Work Phone: [facility] 06-19-2023 16:01-0400 Body height 167.[address] Adelina Graves Work Phone: [facility] 06-19-2023 15:54-0400 Body mass index (BMI) [Ratio] 38 kg/m2 Dr. Adelina Graves Work Phone: [facility] 06-19-2023 15:54-0400 Body weight 107.[address] Adelina Graves Work Phone: [facility] 06-19-2023 15:54-0400 Diastolic blood pressure 84 mm[Hg] Dr. Adelina Graves Work Phone: [facility] 06-19-2023 15:54-0400 Systolic blood pressure 126 mm[Hg] Dr. Adelina Graves Work Phone: [facility] 09-19-2022 17:47-0400 Body height 167.[address] Adelina Graves Work Phone: [facility] 09-19-2022 17:47-0400 Body mass index (BMI) [Ratio] 36.1 kg/m2 Dr. Adelina Graves Work Phone: [facility] 09-19-2022 17:47-0400 Body temperature 97.7 [degF] Dr. Adelina Graves Work Phone: [facility] 09-19-2022 17:47-0400 Body weight 101.[address] Adelina Graves Work Phone: [facility] 09-19-2022 17:47-0400 Diastolic blood pressure 72 mm[Hg] Dr. Adelina Graves Work Phone: [facility] 09-19-2022 17:47-0400 Heart rate 73 /min Dr. Adelina Graves Work Phone: [facility] 09-19-2022 17:47-0400 Respiratory rate 14 /min Dr. Adelina Graves Work Phone: [facility] 09-19-2022 17:47-0400 SaO2% (BldA) [Mass fraction] 97 % Dr. Adelina Graves Work Phone: [facility] 09-19-2022 17:47-0400 Systolic blood pressure 106 mm[Hg] Dr. Adelina Graves Work Phone: [facility] 08-18-2022 10:53-0400 Body temperature 97.9 [degF] Anita Montague APRN.DRUG SAFETY PHYSICIAN Work Phone: [facility] 08-18-2022 10:53-0400 Body weight 105.23 kg Anita Montague APRN.DRUG SAFETY PHYSICIAN Work Phone: [facility] 08-18-2022 10:53-0400 Diastolic blood pressure 68 mm[Hg] Anita Montague APRN.DRUG SAFETY PHYSICIAN Work Phone: [facility] 08-18-2022 10:53-0400 Heart rate 110 /min Anita Montague APRN.DRUG SAFETY PHYSICIAN Work Phone: [facility] 08-18-2022 10:53-0400 Respiratory rate 16 /min Anita Montague APRN.DRUG SAFETY PHYSICIAN Work Phone: [facility] 08-18-2022 10:53-0400 SaO2% (BldA) [Mass fraction] 96 % Anita Montague APRN.DRUG SAFETY PHYSICIAN Work Phone: [facility] 08-18-2022 10:53-0400 Systolic blood pressure 120 mm[Hg] Anita Montague APRN.DRUG SAFETY PHYSICIAN Work Phone: [facility] 06-13-2022 15:15-0400 Body mass index (BMI) [Ratio] 37.1 kg/m2 Dr. Adelina Graves Work Phone: [facility] 06-13-2022 15:15-0400 Body weight 104.[address] Adelina Graves Work Phone: [facility] 06-13-2022 15:15-0400 Diastolic blood pressure 83 mm[Hg] Dr. Adelina Graves Work Phone: [facility] 06-13-2022 15:15-0400 Systolic blood pressure 123 mm[Hg] Dr. Adelina Graves Work Phone: [facility] 01-15-2022 17:04-0500 Body temperature 96.6 [degF] Dr. Adelina Graves Work Phone: [facility] Work Phone: 01-15-2022 17:04-0500 Body weight 104.[address] Adelina Graves Work Phone: [facility] Work Phone: 01-15-2022 17:04-0500 Diastolic blood pressure 76 mm[Hg] Dr. Adelina Graves Work Phone: [facility] Work Phone: 01-15-2022 17:04-0500 Heart rate 64 /min Dr. Adelina Graves Work Phone: [facility] Work Phone: 01-15-2022 17:04-0500 Respiratory rate 18 /min Dr. Adelina Graves Work Phone: [facility] Work Phone: 01-15-2022 17:04-0500 SaO2% (BldA) [Mass fraction] 97 % Dr. Adelina Graves Work Phone: [facility] Work Phone: 01-15-2022 17:04-0500 Systolic blood pressure 124 mm[Hg] Dr. Adelina Graves Work Phone: [facility] Work Phone: 09-19-2021 18:18-0400 Body height 167.64 cm No Primary Care Physician [facility] Work Phone: 09-19-2021 18:18-0400 Body mass index (BMI) [Ratio] 36.1 kg/m2 No Primary Care Physician [facility] Work Phone: 09-19-2021 18:18-0400 Body temperature 97.9 [degF] No Primary Care Physician [facility] Work Phone: 09-19-2021 18:18-0400 Body weight 101.6 kg No Primary Care Physician [facility] Work Phone: 09-19-2021 18:18-0400 Diastolic blood pressure 82 mm[Hg] No Primary Care Physician [facility] Work Phone: 09-19-2021 18:18-0400 Heart rate 76 /min No Primary Care Physician [facility] Work Phone: 09-19-2021 18:18-0400 Respiratory rate 14 /min No Primary Care Physician [facility] Work Phone: 09-19-2021 18:18-0400 SaO2% (BldA) [Mass fraction] 98 % No Primary Care Physician [facility] Work Phone: 09-19-2021 18:18-0400 Systolic blood pressure 108 mm[Hg] No Primary Care Physician [facility] Work Phone: 08-20-2021 19:10-0400 Body temperature 98.29 [degF] Anita Montague APRN.DRUG SAFETY PHYSICIAN Work Phone: [facility] 08-20-2021 19:10-0400 Body weight 104.69 kg Anita Montague APRN.DRUG SAFETY PHYSICIAN Work Phone: [facility] 08-20-2021 19:10-0400 Diastolic blood pressure 82 mm[Hg] Anita Montague APRN.DRUG SAFETY PHYSICIAN Work Phone: [facility] 08-20-2021 19:10-0400 Heart rate 96 /min Anita Montague APRN.DRUG SAFETY PHYSICIAN Work Phone: [facility] 08-20-2021 19:10-0400 Respiratory rate 20 /min Anita Montague APRN.DRUG SAFETY PHYSICIAN Work Phone: [facility] 08-20-2021 19:10-0400 SaO2% (BldA) [Mass fraction] 98 % Anita Montague APRN.DRUG SAFETY PHYSICIAN Work Phone: [facility] 08-20-2021 19:10-0400 Systolic blood pressure 110 mm[Hg] Anita Montague APRN.DRUG SAFETY PHYSICIAN Work Phone: [facility] 05-25-2021 10:28-0400 Body height 167.64 cm No Primary Care Physician [facility] Work Phone: 05-25-2021 10:28-0400 Body mass index (BMI) [Ratio] 37.4 kg/m2 No Primary Care Physician [facility] Work Phone: 05-25-2021 10:28-0400 Body weight 105.23 kg No Primary Care Physician [facility] Work Phone: 05-25-2021 10:28-0400 Diastolic blood pressure 80 mm[Hg] No Primary Care Physician [facility] Work Phone: 05-25-2021 10:28-0400 Systolic blood pressure 110 mm[Hg] No Primary Care Physician [facility] Work Phone: Encounters Encounter Date Encounter Type Care Provider Facility Start: 09-16-2024 Encounter for genera l adult medical examination without abnormal findings Adelina Graves [facility] Start: 09-16-2024 End: 09-16-[address] Adelina Graves MD -[facility] Work Phone: Start: 09-16-2024 End: 09-16-[address] Adelina Graves MD Work Phone: -[facility] Start: 07-16-2024 Encounter for gynecological examination (general) (routine) with abnormal findings Jeane Vazquez [facility] Start: 07-16-2024 End: 07-16-[address] Jeane Vazquez MD -[facility] Work Phone: Start: 07-16-2024 End: 07-16-[address] eJane Vazquez MD [facility] Start: 07-16-2024 End: 07-16-[address] Adelina Graves MD Work Phone: [facility] Work Phone: Start: 07-09-2024 End: 07-09-[address] Adelina Graves MD Work Phone: [facility] Work Phone: Start: 07-09-2024 End: 07-09-[address] Jeane Vazquez MD -[facility] Work Phone: Start: 07-09-2024 End: 07-09-[facility] Start: 06-09-2024 End: 06-09-[address] Adelina Graves MD -[facility] Work Phone: Start: 06-09-2024 End: 06-09-2024 ambulatory [facility] Start: 03-11-2024 End: 03-11-2024 ambulatory [facility] Start: 12-31-2023 End: 12-31-2023 ambulatory [facility] Start: 09-29-[address] Keisha Graves MD Work Phone: [facility] Start: 09-29-2023 End: 09-29-2023 ambulatory [facility] [place]: 09-29-2023 End: 09-29-2023 ambulatory [facility] Facility:[facility] Start: 07-01-2023 End: 07-01-[address] Adelina Graves Work Phone: [facility] Work Phone: Start: 07-01-2023 End: 07-01-[address] Adelina Graves Work Phone: [facility] Work Phone: Start: 06-19-2023 End: 06-19-[address] Adelina Graves Work Phone: [facility] Work Phone: Start: 04-26-2023 End: 04-26-2023 ambulatory [facility] Work Phone: Start: 04-26-2023 End: 04-26-2023 Patient encounter procedure [facility] Work Phone: Start: 10-05-2022 End: 10-05-[address] Adelina Graves Work Phone: [facility] Work Phone: Start: 10-05-2022 End: 10-05-[address] Adelina Graves Work Phone: [facility] Work Phone: Start: 09-19-[address] Keisha Graves Work Phone: [facility] Start: 09-19-2022 End: 09-19-2022 Encounter for general adult medical examination without abnormal findings Dr. Adelina Graves Work Phone: [facility] Start: 09-19-2022 End: 09-19-[address] Adelina Graves Work Phone: [facility] Work Phone: Start: 08-18-2022 End: 08-18-2022 ambulatory Facility:[facility] Start: 08-18-2022 End: 08-18-2022 Patient encounter procedure Anita Montague APRN.DRUG SAFETY PHYSICIAN Work Phone: [facility] Comment on above: Allergic contact jackie matitis due to plants, except food (Primary Dx) Start: 06-13-2022 End: 06-13-[address] Adelina Graves Work Phone: [facility] Work Phone: Start: 02-09-2022 End: 02-09-[address] Adelina Graves Work Phone: [facility] Work Phone: Start: 02-09-2022 End: 02-09-[address] Adelina Graves Work Phone: [facility] Start: 01-16-2022 End: 01-16-[address] Adelina Graves Work Phone: [facility], Specimen Start: 01-15-2022 End: 01-15-[address] Adelina Graves Work Phone: [facility] Start: 12-08-2021 End: 12-08-2021 ambulatory No Primary Care Physician [facility] Work Phone: Start: 12-08-2021 End: 12-08-2021 Patient encounter procedure No Primary Care Physician [facility]-Laboratory Start: 09-29-2021 End: 09-29-2021 Patient encounter procedure No Primary Care Physician [facility]-Radiology, WC Start: 09-19-2021 End: 09-19-2021 Patient encounter procedure No Primary Care Physician [facility] Internal Medicine Start: 08-20-2021 End: 08-20-2021 ambulatory Facility:[facility] Start: 08-20-2021 End: 08-20-2021 Patient encounter procedure Anita Montague APRN.CNP Work Phone: [facility] Comment on above: Insect bite of right lower leg, initial encounter (Primary Dx) Start: 06-05-2021 End: 06-05-2021 Patient encounter procedure No Primary Care Physician [facility]-Laboratory Start: 05-29-2021 End: 05-29-2021 Patient encounter procedure No Primary Care Physician [facility]-Laboratory Start: 05-25-2021 End: 05-25-2021 Patient encounter procedure No Primary Care Physician [facility]-Laboratory, Specimen Start: 05-25-2021 End: 05-25-2021 Patient encounter procedure No Primary Care Physician [facility] Women[facility] Care Procedures Date Procedure Procedure Detail Performing Clinician Start: 07-09-2024 Screening mammography Pj Graves MD Work Phone: Start: 07-01-2023 Screening mammography Pj Graves Work Phone: Urine culture Dr. Adelina Graves Work Phone: Plan of Treatment Date Care Activity Detail Author Start: 11-01-2022 Influenza vaccination INFLUENZ A (Season Ended) [facility] Start: 03-03-2022 DEPRESSION ASSESSMENT DEPRESSION ASS ESSMENT [facility] Start: 11-01-2021 Influenza vaccination INFLUENZ A (Season Ended) [facility] Start: 07-09-2021 COVID-19 VACCINE (3 - Booster for Pfizer series) COVID-19 VACCINE (3 - Booster for Pfizer series) [facility] Start: 2013 HPV TESTING HPV TESTING [facility] Start: 02-12-2004 PAP TESTING PAP TESTING [facility] Start: 2002 Urine microalbumin profile DTAP,TDAP,TD (1 - Tdap) [facility] Start: 2001 HEPATITIS C SCREENING HEPATITIS C SC JESICA [facility] Start: 2001 HIV SCREENING HIV SCREENING [facility] Start: 1995 Adult depression screening assessment DEPRESSION SCREENING [facility] Start: 1983 HEPATITIS B (1 of 3 - 3-dose series) HEPATITIS B (1 of 3 - 3-dose series) [facility] CBC W Auto Different ial panel - Blood [facility] Comprehensive metabo lic 1999 panel - Serum or Plasma [facility] Lipid 1996 panel - S sumi or Plasma [facility] Thyroid stimulating hormone measurement [facility] Payers Date Payer Category Payer Self-pay [id number] 2021 Private Health Insurance [id number] 2021 Private Health Insurance [facility] [employer] [id number] 2021-Present [address] [id number] [place] [address] PPO [id number] 2021 Private Health Insurance [facility] [employer] [id number] 2021-[place] [address] [id number] [place] [address] PPO [id number] Unknown [id number] Unknown [id number] Unknown [id number] Unknown [id number] Unknown [id number] Unknown [id number] Unknown [id number] Unknown [id number] Social History Date Type Detail Facility Start: 05-25-2021 End: 09-19-2022 Tobacco smoking status COIS Unknown if ever smoked [facility] Start: 1985 Sex Assigned At Female [facility] Start: 08-20-2021 End: 08-18-2022 Tobacco smoking status COIS Never smoked tobacco [facility] Start: 08-20-2021 End: 08-18-2022 Tobacco use and exposure Smokeless tobacco non-user [facility] Start: 1985 Sex Assigned At Not on file [facility] Start: 09-29-2023 Tobacco smoking stat us COIS Ex-smoker (finding) [facility] Clinical Notes 05-25-2021 to 07-16-2024 Note Date & Type Note Facility 07-16-2024 Progress note [facility] 07-16-2024 Progress note Note Date/Time July 16, 2024 2:02pm [facility] [address], [address] [place] [address] OFFICE VISIT Date of Service: 07/16/24 MR#: [id number] Acct: [id number] Name: MARLON PERERA Rep #: [id number] : 1985 Provider: Dr. 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 Is patient in pain?: No Allergies claudia Allergy (Intermediate, Verified 07/16/24 13:27) Rash cat dander Allergy (Verified 07/16/24 13:27) Itching dog dander Allergy (Verified 07/16/24 13:27) Itching Environmental Allergies: Uncoded Allergy (Verified 07/16/24 13:27) Itching poison pelon extract Allergy (Verified 07/16/24 13:27) Itching poison oak extract Allergy (Verified 07/16/24 13:27) Itching Seasonal Allergies: Uncoded Allergy (Verified 07/16/24 13:27) Itching Medications ?Medication ?Instructions ?Recorded ?Confirmed ?Type levonorgestrel 20.4 mcg/24 hr (up 1 device intrauterin e ONCE 04/18/21 07/16/24 History to 8 yrs) 52 mg intrauterine device (Liletta) cetirizine 10 mg capsule (Zyrtec) 10 mg PO DAILY PRN 0 09/19/21 07/16/24 History cholecalciferol (vitamin D3) 25 25 mcg PO DAILY 07/16/24 History mcg (1,000 unit) capsule fluticasone propionate 50 1 spray intranasal DAILY PRN 03/11/24 07/16/24 History mcg/actuation nasal spray,suspension (Flonase Allergy Relief) levothyroxine 88 mcg tablet 88 mcg PO DAILY #90 tabs 0 03/22/24 07/16/24 Rx spironolactone 100 mg tablet 100 mg PO DAILY #90 tabs 07/16/24 07/16/24 Rx venlafaxine 75 mg capsule,extended 75 mg PO QDAY #90 c aps 07/16/24 07/16/24 Rx release 24 hr Is last menstrual period known: No Post menopausal: No Patient : No : No PFSH Medical History Spasm of eyelids Anxiety and depression Health care maintenance Left knee pain Depression Preventative health care Obesity (BMI 30-39.9) Hypothyroidism Seasonal allergies Thyroid disorder Contraceptive management Surgical History History of tonsillectomy and adenoidectomy [place] teeth removed Family History Mother Diabetes Grandmother Colon cancer Hypertension Hyperlipemia Father Asthma Social History adopted: No household members: spouse and children number of children: 1 current occupational status: employed current occupation: [employer] pets and animals: Yes pets and animals: cat(s) and dog(s) sexually active: Yes Smoking Status: Former smoker quit date: 03/03/08 Tobacco: How many years used: 5 alcohol intake: current alcohol intake frequency: a few times a week substance use type: does not use and marijuana diet: lactose free caffeine: Yes (2) Type: coffee frequency: other details: active in yard seatbelt use: always do you feel safe at home: Yes History 1 Elective abortions Hx Para 1 Spontaneous abortions Hx # Term Pregnancies 1 Ectopic pregnancies Hx # Pregnancies Multiple births # of living children 1 Past Pregnancies Del. Date Name GA/Weeks Outcome Route Bth Weight Gen Labor Lgth Anesthesia Del Locatn Provider FOB 05/12/09 [place] 40 live - full term 12 hours ep idural Delivery Date: 05/12/09 Last Updated by: Lydia ARMAS HPI Encounter for routine gynecological examination Details: MARLON EPRERA is a 39 year old who presents for annual exam. Last PAP: 05/25/2021 - normal History of abnormal PAP: Last mammogram: 07/09/24 - normal History of abnormal mammogram: Colon cancer screening: not due Other preventative health care screenings: PCP [facility] Female Reproductive History Questions: metorrhagia: No, sexually active: Yes, dyspareunia: No and PCB: No Menopausal Symptoms: No hot flashes, No night sweats, No weight change, No mood changes, No difficulty concentrating, No sleep problems and No change in libido ROS Const Constitutional: Reports as per HPI; Denies fatigue, increased appetite, poor appetite, night sweats, weight gain or weight loss Cardio Card: Denies chest pain Resp Resp: Denies cough or dyspnea GI GI: Reports as per HPI; Denies abdominal pain, bloating, constipation, nausea or vomiting : Reports as per HPI and other; Denies difficulty voiding, dysuria, hematuria, hot flashes, nipple discharge, pelvic pain, prolapse symptoms, urinary frequency, urinary incontinence, urinaryurgency, vaginal discharge, vaginal dryness, vaginal odor or vaginal pruritus Skin Skin/Breast: Denies changing lesions, breast mass, breast pain, breast skin changes or nipple discharge Psych Psych: Denies anxiety, change in libido, depression or difficulty concentrating Exam Const General: cooperative, healthy appearing, comfortable, no acute distress, well developed and well groomed HENVT Head: normal to inspection and normocephalic Ears: hearing grossly normal bilaterally and external ears normal Nose: external nose normal Face and sinus: normal facial exam Neck Neck: normal visual inspection, full ROM and no lymphadenopathy Thyroid: thyroid normal Chest Chest palpation & inspection: normal inspection of the chest Breast inspection: normal inspection of the breasts and normal inspection of theaxillae Breast palpation: normal palpation of the breasts, normal palpation of the axillae and no axillary lymphadenopathy Resp Effort & Inspection: normal respiratory effort GI Inspection: normal to inspection and non-distended Palpation: soft, no hepatosplenomegaly and no guarding General: bladder normal to palpation External Female Exam: normal external appearance, normal appearance of the urethra and no lesions Urethra: normal appearance of the urethra and normal palpation Speculum Exam - Vagina: normal appearance of the vagina and normal vaginal discharge Speculum Exam - Cervix: normal appearance of the cervix, no cervical discharge, no lesions and nontender Bimanual Exam- Vagina & Uterus: normal bimanual exam, uterine size normal, bladder normal to palpation, No tender, uterine mobility normal, consistency normal, non-tender and no cervical motion tenderness Bimanual Exam- Adnexa, other: normal adnexae, no masses and non-tender Skin General: no rashes or lesions noted Neuro General: patient alert, moves all extremities and no focal motor deficits Extrem General: normal to inspection and no pedal edema Psych Appearance: grossly normal Mental Status: mental status grossly normal Affect: normal affect Speech and Movement: speech and movement normal Attitude: cooperative Coding Level of Care Code Off vis,est,prev 40-64yrs Diagnoses Encounter for gynecological examination with abnormal finding Z01.411 Gynecological examination findings: abnormal findings PRESENT Dysthymia F34.1 Assessment and Plan Assessment and Plan (1) Encounter for routine gynecological examination: Qualifiers: Gynecological examination findings: abnormal findings PRESENT QualifiedCode(s): Z01.411 - Encounter for gynecological examination (general) (routine) with abnormal findings (2) Dysthymia: Status: Chronic Comment: effexor Medications: Refilled venlafaxine ER 75 mg PO QDAY 90 caps 4RF spironolactone 100 mg PO DAILY 90 tabs 4RF Plan Cervical cancer screening: papup tod ate Breast cancer screening: mamm other health maintenance examination reviewed and orders placed if needed. Encouraged maintenance of a healthy weight and active lifestyle and handout given. Annual exam handout including recommendations for good health guidelines, Calcium/vitamin D recommendations, and basic screening information given. Problem list up to date, see problem list details for any additional plan information. Follow up in one year for annual health maintenance exam or sooner if needed. 07/16/24 1402 <Electronically signed by Jeane molina MD> Date _ Jeane Vazquez MD Cosign Signature: Date (if applicable) CC: ~ [facility] Work Phone: 1(676) 839-612904-09-2025 Evaluation note* Diagnosis Onset Date Resolution Status Admit Date Anxiety and depression chronic Ap 2024 4:45pm Dysthymia chronic June 09 4:45pm Hypothyroidism chronic June 09, 2024 4:45pm [facility] Work Phone: 1(397) 480-639104-09-2025 Evaluation note* Diagnosis Onset Date Resolution Status Admit Date Anxiety and depression chronic Ap 2024 4:45pm Dysthymia chronic June 09 4:45pm Hypothyroidism chronic June 09, 2024 4:45pm Dysthymia chronic July 16, 2024 1:22pm Encounter for routine gynecological examination noneactive July 162024 1:22pm [facility] Work Phone: 1(104) 238-578206-18-2023 NoteHNO ID: [id number] Author: Anita Montague APRN.CARLO Service: ? Author Type: Nurse Practitioner Type: [...] history is provided by the patient. No staple shear operator was used. Rash Review of Systems Constitutional: [...] file. ALLERGIES Cat Dander, Dog Dander, Poison Pelon Extract, and Seasonal Allergies MEDICATIONS levothyroxine (SYNTHROID) [...] was okay with this care plan. [facility] History of Present illness Narrative* Anita Montague APRN.CARLO - 08/18/2022 11:00 AM EDT Images from the original note were not [...] history is provided by the patient. No staple shear operator was used. Rash Review of Systems Constitutional: Negative. Skin: Positive for itching and rash. Objective Physical Exam Constitutional: Appearance: Normal appearance. Pulmonary: Effort: Pulmonary effort is normal. Skin: Comments: Does have contact dermatitis in the areas marked above. No signs of infection or drainagenoted. Neurological: Mental Status: She is alert. No past medical history on file. No past surgical history on file. ALLERGIES Cat Dander, Dog Dander, Poison Pelon Extract, and Seasonal Allergies MEDICATIONS levothyroxine (SYNTHROID) [...] was okay with this care plan. Anita Montague APRN.CARLO documented in this encounterWilson [facility]06-20-2022 NoteHNO ID: [id number] Author: Anita Montague APRN.CARLO Service: ? Author Type: Nurse Practitioner Type: Progress Notes Filed: 08/20/2021 7:44 PM Note Text: Subjective Patient came in with complaints of possible infected bug bites on right lower outer ankle. Said there is some redness and swelling now. Denies any pain or difficulty moving joints. denies any other symptoms at this time. The history is provided by the patient. No staple shear operator was used. Review of Systems Constitutional: Negative. [...] file. ALLERGIES Cat Dander, Dog Dander, Poison Pelon Extract, and Seasonal Allergies MEDICATIONS levothyroxine (SYNTHROID) [...] was okay with this care plan. Anita Montague APRN.[facility]06-20-2022 History of Present illness Narrative* Anita Montague APRN.CARLO - 08/20/2021 7:20 PM EDT Images from the original note were not included. Subjective Patient came in with complaints of possible infected bug bites on right lower outer ankle. Said there is some redness and swelling now. Denies any pain or difficulty moving joints. denies any other symptoms at this time. The history is provided by the patient. No staple shear operator was used. Review of Systems Constitutional: Negative. [...] file. ALLERGIES Cat Dander, Dog Dander, Poison Pelon Extract, and Seasonal Allergies MEDICATIONS levothyroxine (SYNTHROID) [...] was okay with this care plan. Anita Montague APRN.CARLO documented in this encounterWilson Health03-25-2022 NotePap Smear Specimen AdequacyMarch 2021 12:40pmCommentSatisfactory for evaluation. Endocervical and/or squamous metaplasticcells (endocervical component)are present.[facility] A#[id number] [facility] Work Phone: Comment on above:Satisfactory for evaluation. Endocervical and/or squamous metaplasticcells (endocervical component)are present.05-25-2021 NotePap Smear Specimen AdequacyMarch 2021 12:40pm CommentSatisfactory for evaluation. Endocervical and/or squamous metaplasticcells (endocervical component)are present.[facility] A#[id number] Work Phone: Comment on above:Satisfactory for evaluation. Endocervical and/or squamous metaplasticcells (endocervical component)are present.Evaluation note* Diagnosis Onset Date Resolution Status Acne acute Contraceptive management acu te [facility] Work Phone: Evaluation note* Diagnosis Insect bite of right lower leg, initial encounter- Primary documented in this encounter [facility]* Diagnosis Onset Date Resolution Status Acne acute Obesity (BMI 30-39.9) acute Hypothyroidism chronic [facility] Work Phone: Evaluation note* Diagnosis Onset Date Resolution Status Acute cystitis noneactive [facility] Work Phone: Evaluation note* Diagnosis Allergic contact dermatitis due to plants, except food- Primary Contact dermatitis and other eczema due to plants (except food) documented in this encounter [facility]* Diagnosis Onset Date Resolution Status Contraceptive management acu te Hypothyroidism chronic Encounter for routine gynecological examination noneactive Obesity (BMI 30-39.9) acute Preventative health care acu te Hypothyroidism chronic [facility] Work Phone: Evaluation noteNo assessment information available [facility] Work Phone: Evaluation note* Diagnosis Onset Date Resolution Status Dysthymia acute Encounter for routine gynecological examination noneactive [facility] Work Phone: Reason for referral (narrative)No reason for referral information availableSelect [facility] Work Phone: Chief Complaint and Reason for Visit 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 Reason for Visit Dysthymia Encounter for routine gynecological examination Chief Complaint Admit Date 3 M FU June 09, 2024 4:45 pm screen for breast cancer July 09, 2024 7 :45am Reason for Visit Admit Date Anxiety and depression June 09, 2024 4 :45pm Dysthymia June 09, 2024 4:45 pm Hypothyroidism June 09, 2024 4:45 pm Chief Complaint Admit Date 3 M FU June 09, 2024 4:45 pm screen for breast cancer July 09, 2024 7 :45am 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, 2024 1:22p m Reason for Visit Admit Date Anxiety and depression June 09, 2024 4 :45pm Dysthymia June 09, 2024 4:45 pm Hypothyroidism June 09, 2024 4:45 pm Dysthymia July 16, 2024 1:22p m Encounter for routine gynecological exam ination July 16, 2024 1:22pm Chief Complaint Admit Date 3 M FU June 09, 2024 4:45 pm screen for breast cancer July 09, 2024 7 :45am 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, 2024 1:22p m YEARLY/3 M FU September 16, 2024 4:58 pm Family History No Family History Records Found Relationship Condition Age at Onset Recorded Date/T radha mother Diabetes mellitus Unknown grandmother Malignant neoplasm of colon Unknown Hypertension Unknown Relationship Condition Age at Onset Recorded Date/T radha mother Diabetes mellitus Unknown grandmother Malignant neoplasm of colon Unknown Hypertension Unknown Hyperlipidemia Unknown father Asthma Unknown Summary Purpose Advance Directives No Advanced Directives Records FoundNo Advanced Directives Records Found Additional Source Comments Goals (unrecognized section and content) Goals may be documented in a n alternate sectionGoals may be documented in an alternate sectionGoals may be documented in an alternate sectionGoals may be documented in an alternate sectionGoals may be documented in an alternate sectionGoals may be documented in an alternate sectionGoals may be documented in an alternate sectionGoals may be documented in an alternate sectionGoals may be documented in an alternate sectionGoals may be documented in an alternate sectionGoals may be documented in an alternate section Source Comments (unrecognize d section and content) In the event this informatio n is protected by the Federal Confidentiality of Alcohol and Drug Abuse Patient Records regulations: The Federal rules restrict any use of the information to criminally investigate or prosecute any alcohol or drug abuse patient.[facility] HealthIn the event this information is protected by the Federal Confidentiality of Alcohol and Drug Abuse Patient Records regulations: The Federal rules restrict any use of the information to criminally investigate or prosecute any alcohol or drug abuse patient.[facility] Reason for Visit (unrecogniz ed section and content) Reason Comments Insect Bite R ankle x3 days Specialty Diagnoses / Procedures Referred By Contac t Referred To Contact [facility] Diagnoses possible insect bites on leg since friday Procedures NEW SAME DAY [facility] [address] [place] [address] Referral ID Status Reason Start Date Expiration Date V isits Requested Visits Authorized [id number] Outside PCP 08/20/2021 11/18/2021 1 1 Reason Comments Rash on arms and legs x 2 weeks after fly bites, increased x 1 week ago INFORMATION SOURCE (unrecogn ized section and content) DATE CREATED AUTHOR 08/18/2022 [facility] DATE CREATED AUTHOR 'S VIANNEY ATROBINSON 09/20/2024 [facility] Care Teams (unrecognized sec tion and content) Team Status: Active Member Role Status Dates Dr. Adelina Graves MD Primary Care Provider Active Team Status: Inactive Member Role Status Dates No Primary Care Physician Referring Provider Active Dr. Adelina Graves MD Primary Care Provider, Atten ding Provider Active Team Status: Inactive Member Role Status Dates Dr. Adelina Graves MD Primary Care Provider, Refer ring Provider Active Dr. Jeane Vazquez MD Attending Provider Active Team Status: Inactive Member Role Status Dates Dr. Adelina Graves MD Primary Care P rovider, Attending Provider, Referring Provider Active Team Status: Inactive Member Role Status Dates Dr. Adelina Graves MD Primary Care Provider Active [place], [place] Attending Provider, Referring Prov ider Active Team Status: Inactive Member Role Status Dates Dr. Adelina Graves MD Primary Care Provider Active Dr. Jeane Vazquez MD Attending Provider, Referr ing Provider Active Team Status: Inactive Member Role Status Dates Dr. Adelina Graves MD Primary Care Provider Active Start: June 09, 2024 End: June 09, 2024 Dr. Adelina Graves MD Attending Provider Active Start: June 09, 2024 End: June 09, 2024 Dr. Adelina Graves MD Referring Provider Active Start: June 09, 2024 End: June 09, 2024 Team Status: Inactive Member Role Status Dates Dr. Adelina Graves MD Primary Care Provider Active Start: July 09, 2024 End: July 09, 2024 Dr. Jeane Vazquez MD Attending Provider Active Start: July 09, 2024 End: July 09, 2024 Dr. Jeane Vazquez MD Referring Provider Active Start: July 09, 2024 End: July 09, 2024 Team Status: Inactive Member Role Status Dates Dr. Adelina Graves MD Primary Care Provider Active Start: July 16, 2024 End: July 16, 2024 Dr. Adelina Graves MD Referring Provider Active Start: July 16, 2024 End: July 16, 2024 Dr. Jeane Vazquez MD Attending Provider Active Start: July 16, 2024 End: July 16, 2024 Team Status: Active Member Role/Relationship Status Dates Dr. Adelina Graves MD Primary Care Provider Active Team Status: Inactive Member Role/Relationship Status Dates Dr. Adelina Graves MD Primary Care Provider Active Start: June 09, 2024 End: June 09, 2024 Dr. Adelina Graves MD Attending Provider Active Start: June 09, 2024 End: June 09, 2024 Dr. Adelina Graves MD Referring Provider Active Start: June 09, 2024 End: June 09, 2024 Team Status: Inactive Member Role/Relationship Status Dates Dr. Adelina Graves MD Primary Care Provider Active Start: July 09, 2024 End: July 09, 2024 Dr. Jeane Vazquez MD Attending Provider Active Start: July 09, 2024 End: July 09, 2024 Dr. Jeane Vazquez MD Referring Provider Active Start: July 09, 2024 End: July 09, 2024 Team Status: Inactive Member Role/Relationship Status Dates Dr. Adelina Graves MD Primary Care Provider Active Start: July 16, 2024 End: July 16, 2024 Dr. Adelina Graves MD Referring Provider Active Start: July 16, 2024 End: July 16, 2024 Dr. Jeane Vazquez MD Attending Provider Active Start: July 16, 2024 End: July 16, 2024 Team Status: Inactive Member Role/Relationship Status Dates Dr. Adelina Graves MD Primary Care Provider Active Start: September 16, 2024 End: September 16, 2024 Dr. Adelina Graves MD Attending Provider Active Start: September 16, 2024 End: September 16, 2024 Dr. Adelina Graves MD Referring Provider Active Start: September 16, 2024 End: September 16, 2024 FOR RECORDS PERTAINING TO PATIENTS WHO ARE [...] BE BASED ON THE PRIMARY CLINICAL RECORDS. [facility]. provides no warranty or guarantee of the accuracy or completeness of information in this document.
[2024-10-12 07:18] LABS: Hematocrit 39.7 % (37-47); Hemoglobin 13.2 g/dL (12.0-15.0); Immature Granulocytes Count 0.020 X10^3/uL (0.0-0.0); Mean Corp Hgb Conc 33.2 g/dL (32-36); Mean Corpuscular Volume 88.8 fL (81-99); Mean Platelet Vol. 9.8 fl (6.2-12.0); NRBC Flagged by Analyzer 0 % (0-5); Platelet Count 356 K/mm3 (150-450); RBC Distribution Width CV 13.3 % (11.6-14.6); RBC Distribution Width SD 43.2 fl (35.1-43.9); Red Blood Count 4.47 M/mm3 (4.2-5.4); White Blood Count 6.9 K/mm3 (4.4-11.0)
[2024-10-12 08:02] LABS: AST(SGOT) 19 U/L (<=31); Alanine Aminotransfer ALT/SGPT 16 U/L (<=34); Albumin, Serum 4.2 g/dL (3.5-5.0); Alkaline Phosphatase 53 U/L (35-104); Anion Gap 12 (5-15); BUN 11 mg/dL (4-19); BUN/Creat Ratio 12.6 RATIO (10-20); Calcium,Total 9.3 mg/dL (7.6-11.0); Carbon Dioxide 21.3 mmol/L (21.0-32.0); Chloride 104 mmol/L (98-108); Cholesterol 148 mg/dL (<=200); Globulin 2.9 g/dL (2.2-4.2); Glucose 109 mg/dL (70-99); Low Density Lipoprotein Calc. 72 mg/dL; Potassium 4.2 mmol/L (3.3-5.1); Triglycerides 107 mg/dL; Very Low Density Lipoprotein 21 mg/dL (5-40); cholesterol:hdl ratio screen 2.73
== END | disposition home or self-care (01) ==
PROVIDERS: PCP Internal Medicine; Referring Provider Internal Medicine; Visit Provider Internal Medicine
DX: Z00.00 Encounter for general adult medical examination without abnormal findings (principal); E03.9 Hypothyroidism, unspecified; R73.9 Hyperglycemia, unspecified
CPT/HCPCS: 36415; 80053; 80061; 83036; 84443; 85025

== ENCOUNTER → 2024-12-14 | Outpatient (CLI) | payer OTHER, SELFPAY | END | disposition home or self-care (01) | LOC: LAB 11:42 | PROVIDERS: PCP Internal Medicine; Referring Provider Internal Medicine; Visit Provider Internal Medicine | DX: E03.9 Hypothyroidism, unspecified (principal) | CPT/HCPCS: 36415; 84443 ==